=== PATIENT | male | born 1960 | race African-American/Black ===

== ENCOUNTER 2017-01-11 12:31 | Inpatient (IN) | payer OTHER ==
--- NOTE | ~2017-01-11 | EKG ---
PATIENT: CHEYENNE VINSON UNIT #: [id number] Ventricular Rate: 74 BPM Atrial Rate: 74 BPM P-R Interval: 142 ms QRS Duration: 98 ms Q-T Interval: 414 ms QTC Calculation(Bezet): 459 ms P Loud[place]: 41 degrees Calculated R [place]: 50 degrees Calculated T L[place]: 39 degrees Diagnosis Line: Normal sinus rhythm Diagnosis Line: Nonspecific ST elevation Diagnosis Line: Borderline ECG Diagnosis Line: When compared with ECG of 13-JAN-2017 06:24, Diagnosis Line: (unconfirmed) Diagnosis Line: No significant change was found Diagnosis Line: Confirmed by AYAKA QUACH MD ([id number]) on 01/14/2017 Diagnosis Line: 5:55:47 PM INTERPRETING MD: MAIN RUBY
--- NOTE | ~2017-01-11 | CR72 ---
[facility] A Service of [facility] RADIOLOGY TEXT RESULTS PATIENT: CHEYENNE VINSON LOCATION: [place] [address] : [birth year] UNIT #: [id number] AGE: [address]: Kasey Garcia MD SEX: M ORDER DR: [id number] [facility] [address]. [place], [place] [address] [id number] I MR#: [id number] Acc #: [id number] NAME: CHEYENNE VINSON : 1960 SEX: M STUDY DATE/TIME: 01/14/2017 05:03 UNIT: [facility] ROOM: [facility] STUDY DESCRIPTION: CR Chest Single View Portable Attending Physician: Kasey Garcia M.D. Ordering Physician: Kasey Garcia M.D. Primary Care Physician: Brennan Oliva Jr., A.P.R.N. MEDICAL IMAGING REPORT This report is preliminary unless electronic signature is present EXAM Portable chest, 01/14 at 05:03 INDICATION Dyspnea and wheezing. FINDINGS AP portable chest is compared with 01/13/2017. ET tube mid trachea. There is emphysema. Infiltrates in the bases are again seen and are unchanged. There is a small volume of pleural fluid on both sides of the chest. No pneumothorax. Heart size stable. Dictated by... Rich Mcadams Jr., M.D. THIS IS AN ELECTRONICALLY VERIFIED REPORT Rich Mcadams Jr., M.D. at 01/14/2017 11:01 PM MATEO/ivet TD: 01/14/2017 18:06 JOB #: [id number] MEDICAL IMAGING REPORT COPY
--- NOTE | ~2017-01-11 | CT16 ---
[facility] A Service of [facility] RADIOLOGY TEXT RESULTS PATIENT: CEHYENNE VINSON LOCATION: [place] [address] : 56 UNIT #: [id number] AGE: [address]: Nuria De La Fuente MD SEX: M ORDER DR: [id number] [facility] [address] [place], [place] [address] [id number] I MR#: [id number] Acc #: [id number] NAME: CHEYENNE VINSON. : 1960 SEX: M STUDY DATE/TIME: 01/11/2017 16:26 UNIT: [facility] ROOM: [facility] STUDY DESCRIPTION: CT Angio Chest for PE Attending Physician: Nuria De La Fuente M.D. Ordering Physician: Nuria De La Fuente M.D. Primary Care Physician: Brennan Oliva Jr., A.P.R.N. MEDICAL IMAGING REPORT This report is preliminary unless electronic signature is present EXAM Chest CTA 01/11 INDICATIONS Dyspnea and wheezing for 2 days with cough. TECHNIQUE Axial images were obtained through the chest following IV contrast administration. 3-D reformats were obtained. This CT exam was performed with one or more of the following radiation dose reduction techniques: automatic exposure control, adjustment of mA and/or kV according to patient size, and iterative reconstruction. COMPARISON STUDIES 11/25/2016. FINDINGS The exam is degraded by excessive motion. Bolus timing is suboptimal. No new discrete pulmonary emboli are seen but the third and fourth order branches are fairly poorly evaluated. There is no aortic dissection. There is a trace amount of left pleural fluid which is slightly improved. No pericardial effusion. There has been interval enlargement of an AP window lymph node which now measures 3.4 x 1.6 cm, previously 2.8 x 1.4 cm. 2 prevascular nodes are also larger, both measuring about 9 mm short axis. A right hilar node measures 1.7 x 1.4 cm. This was previously 1.4 x 1.3 cm. A left hilar node now measures about 11 mm short-axis where it was previously about 8 mm. No axillary adenopathy is identified. Lung windows demonstrate severe emphysema. There is dense right lower lobe consolidation which is relatively stable. This has the appearance of round atelectasis. There is worsened consolidation in the left lower lobe which is worrisome for pneumonia. There is some probable scarring round STS. [facility] A Service of [facility] & [facility] RADIOLOGY TEXT RESULTS PATIENT: CHEYENNE VINSON LOCATION: [address] : [birth year] UNIT #: [id number] AGE: [address]: Nuria De La Fuente MD SEX: M ORDER DR: atelectasis in the lingula. Upper abdomen demonstrates hepatic steatosis. There is a 2.4 x 2 cm hypodense right adrenal mass. Density measurements would suggest a benign adenoma. This is stable from the recent prior study, but is new since 01/25/2013. Consider non-emergent evaluation with adrenal protocol MRI. No suspicious osseous lesions. IMPRESSION 1. Suboptimal evaluation due to suboptimal bolus timing as well as excessive respiratory motion. No pulmonary embolism is seen, but third and fourth order branches are fairly poorly evaluated. 2. Slight worsening mediastinal and bilateral hilar adenopathy since 11/25/2016. This is nonspecific and may be reactive, but neoplasm not excluded. Follow-up chest CT in 3 months with contrast is recommended. 3. Severe emphysema. Areas of scarring or round atelectasis in the right lower lobe, left lower lobe and lingula are stable in the short interval. There is new alveolar infiltrate in the left lower lobe which probably reflects pneumonia. 4. There is a hypodense right adrenal nodule which is stable from the recent prior study but new from 2012. This is therefore indeterminate. Non-emergent evaluation with adrenal protocol MRI or CT is recommended when clinically feasible. 5. Fatty liver. Dictated by... Rich Mcadams Jr., M.D. THIS IS AN ELECTRONICALLY VERIFIED REPORT Rich Mcadams Jr., M.D. at 01/12/2017 8:09 AM MATEO/leona TD: 01/11/2017 21:44 JOB #: [id number] MEDICAL IMAGING REPORT COPY
--- NOTE | ~2017-01-11 | EKG ---
PATIENT: CHEYENNE VINSON UNIT #: [id number] Ventricular Rate: 63 BPM Atrial Rate: 63 BPM P-R Interval: 174 ms QRS Duration: 100 ms Q-T Interval: 440 ms QTC Calculation(Bezet): 450 ms P Mansfield: 11 degrees Calculated R Mansfield: 42 degrees Calculated T Mansfield: 39 degrees Diagnosis Line: Normal sinus rhythm Diagnosis Line: Normal ECG Diagnosis Line: When compared with ECG of 13-JAN-2017 17:52, Diagnosis Line: (unconfirmed) Diagnosis Line: Vent. rate has decreased BY 83 BPM Diagnosis Line: Non-specific change in ST segment in Inferior Diagnosis Line: leads Diagnosis Line: Confirmed by AYAKA QUACH MD ([id number]) on 01/14/2017 Diagnosis Line: 6:03:04 PM INTERPRETING MD: MAIN RUBY
--- NOTE | ~2017-01-11 | HP ---
Unit #: [id number] #: [id number] Patient: CHEYENNE VINSON [id number] [address] [place], [place] [address] [id number] MR#: [id number] NAME: CHEYENNE VINSON ROOM: Age: 56 Sex: M Admission Date: 01/11/2017 : 1960 Attending Physician: Cristela Yi M.D. Primary Care Physician: Brennan Oliva Jr., A.P.R.N. HISTORY AND PHYSICAL CHIEF COMPLAINT Dyspnea, wheezes. HISTORY OF PRESENT ILLNESS The patient is a 56-year-old male with a past medical history of COPD, diabetes, likely obstructive sleep apnea, hypothyroidism, tobacco abuse, and morbid obesity, who presented to the emergency department for evaluation of the above. The patient states that he has had a three to four day history of increasing shortness of breath and productive cough. He states that he has had chills but no documented fever. He also reports chest pressure in the mid chest in association with cough. He has had decreased appetite but denies any vomiting or diarrhea. Upon arrival in the emergency department, the patient's oxygen saturation was 40% on room air. He is currently on Oxymizer 10 liters. Chest x-ray shows severe emphysema with a small left pleural effusion. He was given 125 mg of Solu-Medrol, as well as 750 mg of Levaquin in the emergency department. He is being admitted to [facility] for evaluation and further treatment. PAST MEDICAL HISTORY 1. Admission to [facility] December 20-2016, for right lower extremity cellulitis. He was discharged home on Keflex which he has been taking as prescribed. 2. Hypothyroidism. 3. Chronic obstructive pulmonary disease with continued tobacco abuse followed by Dr. Heck. 4. Diabetes. 5. Likely obstructive sleep apnea. 6. Morbid obesity present on admission with a BMI of 42.2. PAST SURGICAL HISTORY Ventral hernia repair. SOCIAL HISTORY The patient lives with his girlfriend. He smokes a pack and a half of cigarettes daily. He no longer drinks alcohol. His code status is a Full Code. FAMILY HISTORY There is no family history of diabetes or coronary artery disease. Unit #: [id number] #: [id number] Patient: CHEYENNE VINSON ALLERGIES No known allergies. HOME MEDICATIONS 1. Albuterol 2 puffs inhaled daily. 2. Aspirin 81 mg daily. 3. Lipitor 20 mg daily. 4. Lasix 40 mg daily. 5. Gabapentin 300 mg daily. 6. Glipizide 5 mg daily. 7. Lantus 20 units in the evening. 8. Levothyroxine 137 mcg daily. 9. Glucophage 1000 mg twice daily. 10. ProAir 2 puffs inhaled q.4 hours. 11. Spiriva 1 puff inhaled daily. 12. Ventolin 2 puffs inhaled q.4 hours. 13. Symbicort 160/4.5 at 2 puffs inhaled twice daily. REVIEW OF SYSTEMS A complete review of systems is negative except as indicated in the History of Present Illness. PHYSICAL EXAMINATION VITAL SIGNS: Temperature is 98.9, pulse 78, respirations 22, blood pressure 135/85, and oxygen saturation 40% on room air, currently in the high 80s on 10 liter Oxymizer. GENERAL: Patient is a male who is awake and alert. He is somewhat restless and anxious. HEENT: Head is atraumatic. Mucous membranes are moist. NECK: Supple. Trachea is midline. CARDIOVASCULAR: Regular rate and rhythm. LUNGS: Inspiratory and expiratory wheezes with a few scattered rhonchi. Breathing is mildly labored with conversation. ABDOMEN: Obese, soft, and nontender, with bowel sounds present in all four quadrants. EXTREMITIES: With 2+ pitting edema bilaterally. The legs are erythematous and warm. PSYCHIATRIC: Patient is somewhat anxious. He is cooperative. SKIN: Somewhat diaphoretic. NEUROLOGIC: Patient is awake and alert. He follows commands. DIAGNOSTIC STUDIES LABORATORY: Complete blood count is essentially normal. Troponin is 0.06. BNP is 181. Arterial blood gas shows a pH of 7.308, PCO2 of 64.7, PO2 of 73 on 10 liter Oxymizer. Comprehensive metabolic panel notable for a sodium of 133, chloride 94, glucose 140, and AST and ALT 92 and 105, respectively. INR is 1.1. D-dimer is 1909. Repeat troponin is less than 0.05. IMAGING: Chest x-ray shows severe emphysema with a small left pleural effusion. CARDIOLOGY: EKG shows normal sinus rhythm with a rate of 76 beats per minute. ASSESSMENT The patient is a 56-year-old male with: 1. Acute respiratory failure, hypoxic and hypercapnic. Unit #: [id number] #: [id number] Patient: CHEYENNE VINSON 2. Chronic obstructive pulmonary disease exacerbation with continued tobacco abuse. 3. Chest pain. 4. History of right lower extremity cellulitis. 5. Left pleural effusion. 6. Chest pain. 7. History of right lower extremity cellulitis, currently on Keflex. 8. Diabetes. 9. Likely obstructive sleep apnea. The patient states that he has an appointment for a sleep study on Monday. 10. Hypothyroidism. 11. Morbid obesity with a body mass index of 42.2. 12. Transaminitis. PLAN 1. Admit to ICU. 2. BiPAP at 12/6 with an FIO2 of 50%. 3. Repeat ABG one hour after on BiPAP. 4. Consult Dr. Moya regarding acute respiratory failure. 5. DuoNebs q.4 hours. 6. Solu-Medrol 80 mg IV q.[address] of the chest, PE protocol, for further evaluation of acute respiratory failure and elevated D-dimer. 8. Check procalcitonin level. 9. Blood cultures x2. 10. Sputum culture and sensitivity. 11. Levaquin 750 mg IV daily pending further workup. 12. Serial cardiac enzymes. 13. Strict I/Os. 14. Daily weights. 15. Change Lasix to IV with first dose now. 16. Low-dose sliding scale insulin with Accu-Cheks. 17. Lovenox for DVT prophylaxis. 18. Protonix for GI prophylaxis since the patient will be on Solu-Medrol. 19. Repeat labs in the morning. 20. Additional workup and consultants based on above. 21. Regarding code status, the patient is a Full Code. Thirty-five (35) minutes critical care time spent in the care of this patient (1:50-2:25 p.m.). Dictated by Nuria De La Fuente M.D. AW/tera TD: 01/11/2017 15:32 JOB #: [id number] Unit #: [id number] #: [id number] Patient: CHEYENNE VINSON HISTORY AND PHYSICAL X Nuria De La Fuente MD HISTORY AND PHYSICAL
--- NOTE | ~2017-01-11 | CR72 ---
[facility] A Service of [facility] RADIOLOGY TEXT RESULTS PATIENT: CHEYENNE VINSON LOCATION: [place] [address] : [birth year] UNIT #: [id number] AGE: [address]: Kasey Garcia MD SEX: M ORDER DR: [id number] [facility] [address] [place], [place] [address] [id number] I MR#: [id number] Acc #: [id number] NAME: CHEYENNE VINSON : 1960 SEX: M STUDY DATE/TIME: 01/12/2017 11:07 UNIT: [facility] ROOM: [facility] STUDY DESCRIPTION: CR Chest Single View Portable Attending Physician: Kasey Garcia M.D. Ordering Physician: Rajiv Espinal M.D. Primary Care Physician: Brennan Oliva Jr., A.P.R.N. MEDICAL IMAGING REPORT This report is preliminary unless electronic signature is present EXAM Portable chest 01/12/2017 HISTORY Status post intubation. Short of air. Unable to eat. Duration today. COMPARISON CT examination 01/11/2017 and plain radiograph 01/11/2017. FINDINGS Endotracheal tube terminates 6.2 cm above the lauro at the upper T3 vertebral body level. The flexible feeding tube extends below the diaphragm and off the field of the radiograph. Cardiomediastinal contours are stable with mild cardiac enlargement. No change in appearance of pulmonary parenchyma. There is evidence of upper lung zone emphysema. Coarse linear markings in the kgw-md-aonlt lung zones bilaterally probably reflects some degree of chronic interstitial change. Patchy areas of airspace disease at the bilateral lung bases are nonspecific and probably involve components of atelectasis and bibasilar pneumonitis in addition to some underlying chronic parenchymal changes. No sizable pleural effusion is seen. There is no pneumothorax. No suspicious nodule. Dictated by... Jd Ma M.D. THIS IS AN ELECTRONICALLY VERIFIED REPORT Jd Ma M.D. at 01/14/2017 8:22 PM JAMAAL/vanessa TD: 01/12/2017 13:54 JOB #: [id number] [facility] A Service of [facility] RADIOLOGY TEXT RESULTS PATIENT: CHEYENNE VINSON LOCATION: [address] : [birth year] UNIT #: [id number] AGE: [address]: Kasey Garcia MD SEX: M ORDER DR: MEDICAL IMAGING REPORT COPY
--- NOTE | ~2017-01-11 | CO ---
Unit #: [id number] #: [id number] Patient: CHEYENNE VINSON [id number] [address] [place], [place] [address] [id number] I MR#: [id number] NAME: CHEYENNE VINSON ROOM: [facility] Age: 56 Sex: M Admission Date: 01/11/2017 : 1960 Attending Physician: Kasey Garcia M.D. Primary Care Physician: Brennan Oliva Jr., A.P.R.N. Consultation Date: 01/11/2017 CONSULTATION REPORT HISTORY OF PRESENT ILLNESS This is a 56-year-old gentleman with a history of obstructive sleep apnea, COPD, history of chronic tobacco use, positive obesity. He presents with 4 days of progressive chills, chest pain, shortness of breath, dyspnea on exertion. The patient was very hypoxic on room air on presentation to the emergency room and was placed on BiPAP. The patient is very confused, and therefore, is unable to give us a very clear history of what is going on. The patient has had previous admission in December, where he had cellulitis, bilateral lower extremity edema, and diabetes mellitus. The patient was sent home with antibiotics. Since then, he is not able to give us a history of worsening fevers or chills, but he has had anorexia. REVIEW OF SYSTEMS Difficult to obtain as the patient is confused. He complains of being hungry, however, he is remarkably confused and cannot stay long off the BiPAP. PAST MEDICAL HISTORY Significant for right lower extremity cellulitis, history of hypothyroidism, history of chronic obstructive pulmonary disease followed by Dr. Heck, history of diabetes, history of obstructive sleep apnea, and history of morbid obesity. PAST SURGICAL HISTORY Significant for ventral hernia repair. SOCIAL HISTORY The patient lives with girlfriend. He smokes a pack and half a day. History of alcohol, none currently. FAMILY HISTORY No family history of diabetes or coronary artery disease. ALLERGIES The patient has no known drug allergies. HOME MEDICATIONS Include albuterol 2 puffs inhaled daily, aspirin 81 mg daily, Lipitor 20 mg daily, Lasix 40 mg daily, gabapentin 300 mg daily, glipizide 5 mg daily, Lantus 20 units each evening, levothyroxine 137 mcg daily, Glucophage 1000 mg b.i.d., ProAir two puffs inhaled every 4 hours, Spiriva 1 puff inhaled daily, Ventolin 2 puffs every 4 hours, Symbicort 160/4.5 two puffs inhaled b.i.d. Unit #: [id number] #: [id number] Patient: CHEYENNE VINSON PHYSICAL EXAMINATION VITAL SIGNS: T-current 97.4, pulse 59, respiratory rate 15, blood pressure 121/78, saturating 94% on 50% BiPAP. HEENT: Pupils are equal, round, and reactive to light. Extraocular movements are intact. NECK: Shows it is large and greater than 17 inches. Shows no accessory muscle use. CHEST: Shows kind of decreased wheeze bilaterally. CARDIOVASCULAR: Regular rate. No gallop. ABDOMEN: Soft, nontender, and nondistended. EXTREMITIES: Show edema +1 to +2. Does not appear to be acute erythema. DIAGNOSTIC STUDIES LABORATORY RESULTS: Troponins 0.10. ABG; 7.32, 50, and 90 on the BiPAP. ASSESSMENT AND PLAN 1. Acute respiratory failure, chronic obstructive pulmonary disease exacerbation, left lower lobe pneumonia. 2. Rounded atelectasis bilaterally, obstructive sleep apnea, and diabetes mellitus. PLAN Plan is to keep BiPAP overnight. Continue nebs, try to keep saturation between 92 and 95. Tomorrow morning, we are going to have to try to wean him off the BiPAP and in the meantime, we will continue current antibiotics which is Levaquin. We are going to try to send sputum cultures to check for MRSA nares and will also put the patient on a little bit of steroids. Thank you very much for this consult and allowing us to participate in the care of this patient. Please page me at [phone] if you have any questions. Dictated by... Melvin Fink/kimi TD: 01/13/2017 05:46 JOB #: [id number] CONSULTATION REPORT X Lucas Espinal MD CONSULTATION REPORT
--- NOTE | ~2017-01-11 | CR72 ---
[facility] A Service of [facility] RADIOLOGY TEXT RESULTS PATIENT: CHEYENNE VINSON LOCATION: [place] [address] : 56 UNIT #: [id number] AGE: [address]: Kasey Garcia MD SEX: M ORDER DR: [id number] [facility] [address] [place], [place] [address] [id number] I MR#: [id number] Acc #: [id number] NAME: CHEYENNE VINSON : 1960 SEX: M STUDY DATE/TIME: 01/13/2017 5:11 UNIT: [facility] ROOM: [facility] STUDY DESCRIPTION: CR Chest Single View Portable Attending Physician: Kasey Garcia M.D. Ordering Physician: Rajiv Espinal M.D. Primary Care Physician: Brennan Oliva Jr., A.P.R.N. MEDICAL IMAGING REPORT This report is preliminary unless electronic signature is present EXAM Portable chest HISTORY Ventilated dependence, dyspnea, and wheezing. TECHNIQUE A single AP view of the chest was obtained and compared with 01/12/2017. FINDINGS Tubes and supporting devices remain in satisfactory position. The heart and mediastinum are stable. Extensive infiltrates are seen with emphysematous changes. Since the previous examination no new infiltrates are noted. The right costophrenic angle shows improved aeration since the previous exam. IMPRESSION Slight improvement at the right lung base since the previous exam. No new infiltrates are seen. Dictated by... Rich Johnson M.D. THIS IS AN ELECTRONICALLY VERIFIED REPORT Rich Johnson M.D. at 01/13/2017 3:26 PM HELEN/yahaira TD: 01/13/2017 10:04 JOB #: [id number] MEDICAL IMAGING REPORT COPY
--- NOTE | ~2017-01-11 | EKG ---
PATIENT: CHEYENNE VINSON UNIT #: [id number] Ventricular Rate: 65 BPM Atrial Rate: 65 BPM P-R Interval: 156 ms QRS Duration: 94 ms Q-T Interval: 438 ms QTC Calculation(Bezet): 455 ms P Niland: -11 degrees Calculated R Niland: 48 degrees Calculated T Niland: 38 degrees Diagnosis Line: Normal sinus rhythm Diagnosis Line: Normal ECG Diagnosis Line: When compared with ECG of 11-JAN-2017 11:55, Diagnosis Line: No significant change was found Diagnosis Line: Confirmed by AYAKA QUACH MD ([id number]) on 01/14/2017 Diagnosis Line: 5:53:40 PM INTERPRETING MD: MAIN RUBY
--- NOTE | ~2017-01-11 | CR72 ---
[facility] A Service of [facility] & [facility] RADIOLOGY TEXT RESULTS PATIENT: CHEYENNE VINSON LOCATION: [facility] - : 56 UNIT #: [id number] AGE: [address]: Kasey Garcia MD SEX: M ORDER DR: [id number] [facility] [address] [place], [place] [address] [id number] I MR#: [id number] Acc #: [id number] NAME: CHEYENNE VINSON : 1960 SEX: M STUDY DATE/TIME: UNIT: [address] ROOM: [facility] STUDY DESCRIPTION: CR Chest Single View Portable Attending Physician: Kasey Garcia M.D. Ordering Physician: Rajiv Espinal M.D. Primary Care Physician: Brennan Oliva Jr., A.P.R.N. MEDICAL IMAGING REPORT This report is preliminary unless electronic signature is present EXAM Portable chest 01/18/2017 at 0250 INDICATION Shortness of air, cough, chills and congestion for 7 days. Respiratory failure. COPD. FINDINGS AP portable chest compared with 01/15/2017. Heart size stable. There is severe emphysema. Continued infiltrate or atelectasis noted in the bases, left greater than right. There is a small volume of pleural fluid on both sides of the chest. No pneumothorax. IMPRESSION Severe emphysema with persistent bibasilar infiltrates, left greater than right. There are also small effusions. Dictated by... Rich Mcadams Jr., M.D. THIS IS AN ELECTRONICALLY VERIFIED REPORT Rich Mcadams Jr., M.D. at 01/18/2017 9:17 PM MATEO/yahaira TD: 01/18/2017 10:27 JOB #: [id number] MEDICAL IMAGING REPORT COPY
--- NOTE | ~2017-01-11 | EKG ---
PATIENT: CHEYENNE VINSON UNIT #: [id number] Ventricular Rate: 76 BPM Atrial Rate: 76 BPM P-R Interval: 138 ms QRS Duration: 88 ms Q-T Interval: 380 ms QTC Calculation(Bezet): 427 ms Calculated R Harrison: 84 degrees Calculated T Harrison: 46 degrees Diagnosis Line: Normal sinus rhythm Diagnosis Line: Normal ECG Diagnosis Line: When compared with ECG of 19-DEC-2016 21:54, Diagnosis Line: No significant change was found Diagnosis Line: Confirmed by ALEXANDRE RAHMAN MD ([id number]) on 01/12/2017 Diagnosis Line: 6:19:32 PM INTERPRETING MD: JOSIAH RUBY
--- NOTE | ~2017-01-11 | DS ---
Unit #: [id number] #: [id number] Patient: CHEYENNE VINSON [id number] [address] [place], [place] [address] [id number] MR#: [id number] NAME: CHEYENNE VINSON. ROOM: [facility] Age: 56 Sex: M Admission Date: 01/11/2017 : 1960 Discharge Date: 01/20/2017 Attending Physician: Kasey Garcia M.D. Primary Care Physician: Brennan Oliva Jr., A.P.R.N. DISCHARGE SUMMARY DIAGNOSES ON ADMISSION 1. Acute respiratory failure. 2. Chronic obstructive pulmonary disease exacerbation. DIAGNOSES ON DISCHARGE 1. Acute respiratory failure requiring intubation, improved. The patient requires home oxygen. 2. Cor pulmonale. 3. Chronic obstructive pulmonary disease. 4. Paroxysmal atrial fibrillation. 5. History of myocardial infarction. 6. Obstructive sleep apnea syndrome. 7. Insulin-dependent diabetes mellitus. 8. Hypothyroidism. CONSULTATIONS 1. Dr. Cedillo in cardiology consultation. 2. Dr. Espinal in pulmonary consultation. DIAGNOSTIC STUDIES LABS: The patient's creatinine is 1.1, sodium 136, potassium 4.5. INR is 2.1. WBC is 11.4, hemoglobin 15.9, platelet count is 289. HOSPITAL COURSE This 56-year-old male was admitted to the hospital with respiratory distress. Details are as per admission H and P. Acute respiratory failure. The patient was admitted in the ICU and was intubated. He was gradually extubated. The patient has responded well. Acute exacerbation of COPD. The patient was treated with IV Solu-Medrol and responded well. Acute bronchitis. The patient was treated with antibiotics. Atrial fibrillation. The patient has converted to sinus rhythm. The patient is started on Coumadin and is advised to follow up with cardiology. PHYSICAL EXAMINATION GENERAL: Today, the patient is comfortable, anxious to go home. VITAL SIGNS: Vital signs reveal temperature of 98.6, pulse 62 per minute, respiratory rate 18 per minute and blood pressure 127/85. HEENT: Examination revealed no conjunctival congestion. Sclera is nonicteric. Unit #: [id number] #: [id number] Patient: CHEYENNE VINSON NECK: Neck is supple. Trachea is central. RESPIRATORY: Examination revealed breath sounds equal bilaterally. There are no wheezes or crackles. HEART: Regular rate and rhythm. S1, S2. ABDOMEN: Abdomen is soft, nontender. Bowel sounds are present in all 4 quadrants. NEUROLOGIC: The patient is alert to person, place and time. Power is 5/5 bilaterally. Sensations are grossly intact. SKIN: Skin is warm and dry. CONDITION Stable. ACTIVITIES As tolerated. DISCHARGE MEDICATIONS 1. Albuterol Mini-Neb treatment q.4 hours awake. 2. Albuterol MDI 2 puffs q.4 hours p.r.n. 3. Symbicort 160/4.5 mcg 2 puffs b.i.d. 4. Prednisone as per Dr. Espinal, which his 10 mg 4 tablets p.o. daily for 4 days, then 3 tablets p.o. daily for 3 days, then 2 tablets p.o. daily for 2 days, then 1 tablet p.o. daily for 1 day. 5. Spiriva 1 inhalation daily. 6. Coumadin 5 mg p.o. daily. 7. Neurontin 300 mg p.o. daily. 8. Glucophage 1,000 mg p.o. b.i.d. 9. Lasix 40 mg p.o. daily. 10. Lipitor 20 mg p.o. q.h.s. 11. Lantus 20 units subcu q.h.s. 12. Enteric-coated aspirin 81 mg p.o. daily. 13. Glipizide 5 mg p.o. daily. 14. Synthroid 137 mcg p.o. daily. FOLLOW-UP 1. The patient is advised to follow up with primary care physician in 1 week. 2. Advised to follow up with pulmonology and cardiology as recommended. 3. It is advised to have an INR done with Dr. Cedillo's office in the next 4-5 days. NOTE: The patient is advised to call primary care physician or go to ER if his condition changes. Dictated by... Melvin Winslow TD: 01/20/2017 12:04 JOB #: [id number] Unit #: [id number] #: [id number] Patient: CHEYENNE VINSON DISCHARGE SUMMARY X Kasey Garcia MD DISCHARGE SUMMARY
--- NOTE | ~2017-01-11 | A ---
[facility] Nutrition Therapy DATE: 01/12/17 Patient: CHEYENNE VINSON Physician: KEVIN Address: [address] [place] [address] Room/Bed: [address], Zip: [place] [address] Admit Date: 01/11/17 Date of : 56 Height: 6 1 Weight: 303 137.5 NUTRITIONAL ASSESSMENT: REASON: CONSULT FOR ENTERAL NUTRITION, No diet order in ICU 56 yo male admitted for dyspnea PMH: COPD, DM, RADAMES, hypothyroidism, morbid obesity, hernia repair Anthropometrics: Ht: 6'1" Wt: 137.5 kg BMI: 40 IBW: 83.6 kg Labs: Na+ 133 K+ 5.2 Cl- 92 Gluc 208 Ca++ 7.8 Alb 3.2 AST 68 ALT 93 Accuchecks 191 Meds: Solu-medrol, levaquin (IV), D5%, versed, synthroid (now ordered PO, will be via DHT per RN), levemir, lipitor, novolog, furosemide, protonix I/O & Bowel function: , last BM unknown, DHT in place Skin Integrity: red/swollen BLE Edema: BLE 2+ Estimated Nutrition Needs: 8926-9533 kcals (11-14 kcals/kg ABW) 125-167 grams protein (1.5-2.0 grams/kg IBW) Assessment: Chart reviewed, events noted. Pt is intubated and sedated in the ICU. Pt's propofol is turned off at this time, may be changing sedation medication per RN report. RD consulted to provide enteral nutrition recommendations. No family in the pt's room at this time to provide nutritional history. Per MD note, the pt had decreased appetite prior to admission. Dx: Inadequate protein-energy intake RT clinical condition AEB enteral nutrition ordered, no diet order. Intervention: 1. Enteral nutrition Monitoring, Evaluation and Goals: 1. Enteral nutrition; provide >80% goal volume x 24hrs 2. Labs; WNL 3. Weight; preserve lean body mass 4. Skin; prevent breakdown [facility] Nutrition Therapy DATE: 01/12/17 Patient: CHEYENNE VINSON Physician: KEVIN Address: [address] [place] [address] Room/Bed: [address], Zip: [place] [address] Admit Date: 01/11/17 Date of : 56 Height: 6 1 Weight: 303 137.5 Recommendations: 1. Once medically feasible, initiate enteral nutrition with Glucerna 1.5 @ 20 mL/hr x 22 hrs. Increase by 10 mL q 8 hrs as tolerated to goal of 55 mL/hr x 22 hrs to provide: 2015 kcals/ 130 grams protein/ 918 mL free H20 PLEASE NOTE: ENTERAL NUTRITION SHOULD BE HELD FOR ONE HOUR BEFORE AND ONE HOUR AFTER ADMINISTRATION OF SYNTHROID VIA DHT 2. Free H20 per MD orders. 3. Will monitor K+ levels and adjust enteral nutrition as needed. Nepro is not indicated at this time based on the pt's other renal labs, PMH. Pt is at moderate-severe nutritional risk. Respectfully, JAMES ARMENDARIZ RD, LD Food and Nutritional Services [facility] cc: client file
--- NOTE | ~2017-01-11 | CR72 ---
[facility] A Service of [facility] & [facility] RADIOLOGY TEXT RESULTS PATIENT: CHEYENNE VINSON LOCATION: [place] [id number] : [birth year] UNIT #: [id number] AGE: [address]: Kasey Garcia MD SEX: M ORDER DR: [id number] [facility] [address] [facility]. [place], [place] [address] [id number] I MR#: [id number] Acc #: [id number] NAME: CHEYENNE VINSON : 1960 SEX: M STUDY DATE/TIME: 01/15/2017 03:58 UNIT: [facility] ROOM: [facility] STUDY DESCRIPTION: CR Chest Single View Portable Attending Physician: Kasey Garcia M.D. Ordering Physician: Negro Cox M.D. Primary Care Physician: Brennan Oliva Jr., A.P.R.N. MEDICAL IMAGING REPORT This report is preliminary unless electronic signature is present EXAM Portable chest, 01/15 at 03:58 INDICATION Respiratory failure, confusion, chills and shortness of air for 4 days. FINDINGS AP portable chest is compared with 01/14/2017. The patient has been extubated. The feeding tube has been removed. Heart size is stable. There is emphysema with persistent infiltrate or atelectasis in both bases. No pneumothorax. Dictated by... Rich Mcadams Jr., M.D. THIS IS AN ELECTRONICALLY VERIFIED REPORT Rich Mcadams Jr., M.D. at 01/15/2017 9:33 PM MATEO/ivet TD: 01/15/2017 17:00 JOB #: [id number] MEDICAL IMAGING REPORT COPY
--- NOTE | ~2017-01-11 | CR7 ---
[facility] A Service of [facility] & [facility] RADIOLOGY TEXT RESULTS PATIENT: CHEYENNE VINSON LOCATION: [place] [id number] : 56 UNIT #: [id number] AGE: [address]: Kasey Garcia MD SEX: M ORDER DR: [id number] [facility] [address] [facility]. [place], [place] [address] [id number] I MR#: [id number] Acc #: [id number] NAME: CHEYENNE VINSON : 1960 SEX: M STUDY DATE/TIME: 01/12/2017 11:10 UNIT: [facility] ROOM: [facility] STUDY DESCRIPTION: CR Abdomen Single AP View Attending Physician: Kasey Garcia M.D. Ordering Physician: Rajiv Espinal M.D. Primary Care Physician: Brennan Oliva Jr., A.P.R.N. MEDICAL IMAGING REPORT This report is preliminary unless electronic signature is present EXAM Supine radiograph of the abdomen 01/12/2017 HISTORY Dobbhoff tube placement. FINDINGS Supine radiograph of the abdomen shows flexible feeding tube extending below diaphragm and terminating in anticipated location of distal stomach. Visualized bowel gas pattern within normal limits. No gross evidence of free air. See today's chest radiograph for discussion of pulmonary parenchymal findings. Dictated by... Jd Ma M.D. THIS IS AN ELECTRONICALLY VERIFIED REPORT Jd Ma M.D. at 01/14/2017 8:22 PM JAMAAL/vanessa TD: 01/12/2017 13:58 JOB #: [id number] MEDICAL IMAGING REPORT COPY
--- NOTE | ~2017-01-11 | CR72 ---
[facility] A Service of [facility] & [facility] RADIOLOGY TEXT RESULTS PATIENT: CHEYENNE VINSON LOCATION: [facility] : 56 UNIT #: [id number] AGE: [address]: Cristela Yi MD SEX: M ORDER DR: [id number] [facility] [address] [place], [place] [address] [id number] MR#: [id number] Acc #: [id number] NAME: CHEYENNE VINSON : 1960 SEX: M STUDY DATE/TIME: 01/11/2017 12:08 UNIT: [facility] ROOM: STUDY DESCRIPTION: CR Chest Single View Portable Attending Physician: Cristela Yi M.D. Ordering Physician: Cristela Yi M.D. Primary Care Physician: Brennan Oliva Jr., A.P.R.N. MEDICAL IMAGING REPORT This report is preliminary unless electronic signature is present EXAM Portable chest, 01/11 INDICATION Shortness of air today. History of COPD. FINDINGS AP portable views of the chest are compared with 12/19/2016. Cardiac and mediastinal contours are stable. There is severe emphysema with chronic bibasilar fibrosis. There is a chronic small left pleural effusion. No definite acute infiltrates. No pneumothorax. IMPRESSION Severe emphysema with bibasilar scarring. There is chronic small left pleural effusion. Overall, the exam is unchanged from prior. Dictated by... Rich Mcadams Jr., M.D. THIS IS AN ELECTRONICALLY VERIFIED REPORT Rich Mcadams Jr., M.D. at 01/11/2017 2:59 PM MATEO/ivet TD: 01/11/2017 14:45 JOB #: [id number] MEDICAL IMAGING REPORT COPY
--- NOTE | ~2017-01-11 | FU ---
[facility] Nutrition Therapy DATE: 01/16/17 Patient: CHEYENNE VINSON Physician: KEVIN Address: [address] [place] [address] Room/Bed: [address], Zip: [place] [address] Admit Date: 01/11/17 Date of : 56 Height: 6 1 Weight: 300 136.5 NUTRITION MONITORING/FOLLOW-UP: Reason: Nutrition follow up Anthropometrics: Ht: 6'1" Adm wt: 137.5 kg BMI: 40 IBW: 83.6 kg Wt 01/16: 136.5 kg Labs: Cl- 94 Gluc 182 BUN 28 Ca++ 8.3 Accuchecks 205 Meds: Solu-medrol, novolog, levemir, levaquin (IV), synthroid (PO), lipitor, furosemide, protonix I&O's: 194, last BM 01/15- loose stools Skin: Cellulitis RLE Edema: None noted Diet: Heart healthy/ consistent carbohydrate Assessment: Chart reviewed, events noted. Pt remains in ICU, self-extubated over the weekend. Pt passed REGULATOR PIN INSERTER evaluation, and has been ordered HH/CC diet. Pt is on a face tent for respiratory distress, and takes it off for meals per RN report. RN also reports that the pt is confused, and consuming ~25% of meals thus far. RD will order Glucerna shakes for supplemental nutrition. Pt is not appropriate for diet education at this time. Dx: Inadequate oral intake RT respiratory distress AEB ~25% intake of meals per RN report. Intervention: 1. Heart healthy/ consistent carbohydrate diet 2. Glucerna TID Monitoring, Evaluation and Goals: GOALS NOT BEING MET 1. Oral intake; tolerate >50-75% meals and supplements 2. Labs; WNL 3. Weight; prevent unintentional weight loss, promote gradual weight loss once medically feasible 4. Skin; prevent breakdown Recommendations: 1. Continue heart healthy/ consistent carbohydrate diet as tolerated. [facility] Nutrition Therapy DATE: 01/16/17 Patient: CHEYENNE VINSON Physician: KEVIN Address: [address] [place] [address] Room/Bed: [address], Zip: [place] [address] Admit Date: 01/11/17 Date of : 56 Height: 6 1 Weight: 300 136.5 2. Glucerna TID with meals for supplemental nutrition. 3. Appreciate staff encouraging adequate nutrient/ supplement intake as needed. Status: Pt is at mild-moderate nutritional risk. RD will continue to follow. Respectfully, JAMES ARMENDARIZ RD, LD Food and Nutritional Services [facility] cc: client file
--- NOTE | ~2017-01-11 | CO ---
Unit #: [id number] #: [id number] Patient: CHEYENNE VINSON [id number] [address] [place], [place] [address] [id number] I MR#: [id number] NAME: CHEYENNE VINSON ROOM[facility] Age: 56 Sex: M Admission Date: 01/11/2017 : 1960 Attending Physician: Kasey Garcia M.D. Primary Care Physician: Brennan Oliva Jr., A.P.R.N. Consultation Date: 01/13/2017 CONSULTATION REPORT REASON FOR CONSULTATION Atrial arrhythmia. HISTORY OF PRESENT ILLNESS This is a 56-year-old male with a past medical history of sinus bradycardia due to severe hypothyroidism in 2012. Prior to that, the patient was diagnosed with Graves disease. 2D echocardiogram was completed in 01/25/2013 which was a technically difficult study that revealed a left ventricular ejection fraction of 50% to 55% with mild mitral regurgitation. Walking Lexiscan Cardiolite stress test was completed on 01/28/2013, which revealed no ischemia and ejection fraction of 60%. The patient is known to have COPD, diabetes, and active tobacco abuse. He was recently admitted to [facility] on 12/20/2016 for right leg cellulitis. He was discharged and then readmitted on 01/11/2017 with complaints of shortness of breath and wheezing. He is currently on a ventilator and is only able to respond with nods. There are no family at the bedside. The patient denies any fever, but does have some chills on exam. There are no reports of chest pain, palpitations, or syncope. He admits to some occasional dizziness. It is unclear if his answers are reliable as he is on some light sedation and ventilator. He was intubated due to respiratory failure and started on a propofol drip. Due to bradycardia, the propofol was stopped. Potassium was mildly elevated on 01/12/2017. He was given Kayexalate. Telemetry revealed an atrial arrhythmia which on first glance appeared to be atrial fibrillation with RVR. Telemetry now reveals sinus rhythm. PAST MEDICAL HISTORY 1. Recent admission at [facility] at 12/20/2016 for right leg cellulitis. 2. History of sinus bradycardia due to severe hypothyroidism in 2012. 3. 2D echocardiogram on 01/25/2013 revealed a technically difficult study. Left ventricular ejection fraction 50% to 55%. Mild left ventricular hypertrophy. Mild mitral regurgitation. 4. Walking Lexiscan on 01/28/2013 revealed no ischemia. Left ventricular ejection fraction 60%. 5. Diabetes mellitus type 2. 6. COPD. 7. Colon polyps. 8. Active tobacco abuse. 9. Obesity. 10. History of Graves disease. Unit #: [id number] #: [id number] Patient: CHEYENNE VINSON PAST SURGICAL HISTORY Unobtainable per patient. HOME MEDICATIONS Glipizide 5 mg p.o. daily, Lantus 20 units subcu every evening, levothyroxine 137 mcg p.o. daily, Glucophage 1000 mg p.o. b.i.d., ProAir 2 puffs inhalation q.4 hours, Spiriva 1 puff inhalation daily, Ventolin 2 puffs every 4 hours, Symbicort 2 puffs inhalation b.i.d. ALLERGIES No known drug allergies. SOCIAL HISTORY Difficult to obtain per the patient. According to documentation, the patient is an active smoker. No reports of illicit drug use. FAMILY HISTORY Unobtainable. REVIEW OF SYSTEMS The patient's full 12-point review of systems is unobtainable. PHYSICAL EXAMINATION VITAL SIGNS: Temperature 98.1, pulse 80, blood pressure 121/62. CONSTITUTIONAL: This is a 56-year-old obese male in no acute distress. He is on a ventilator. SKIN: Warm and dry. NECK: Supple. No jugular vein distention. No hepatojugular reflux. Normal carotid upstrokes. No carotid bruits auscultated. HEART: S1 and S2. Regular rate and rhythm. No murmurs, rubs, or gallops. LUNGS: Bilateral breath sounds have scattered wheezes. Respirations even nonlabored. No rales or rhonchi. ABDOMEN: Soft, nontender, and nondistended. Positive bowel sounds auscultated x4 quadrants. No ascites noted. EXTREMITIES: Bilateral lower extremities have trace pretibial pitting edema. DP and PT pulses 2+. Capillary refill less than 2 seconds. DIAGNOSTIC STUDIES LABORATORY RESULTS: White blood cell count 9.7, hemoglobin 13.4, hematocrit 41.5, platelets 260. Sodium 136, potassium 4.3, chloride 94, CO2 36, BUN 27, creatinine 1.1, glucose 266. Troponin 0.10 and 0.06. BNP 181. TSH 1.95. T4 0.62. D-dimer 1909. IMAGING STUDIES: CTA of the chest reveals suboptimal timing, but no PE. COPD. Fatty liver. New infiltrate in the left lower lobe with questionable pneumonia. Right adrenal nodule. CARDIOVASCULAR STUDIES: EKG reveals sinus rhythm with a ventricular rate of 65 beats per minute. Early repolarization noted. Nonspecific ST-T wave changes. QTc 455 milliseconds. IMPRESSION 1. Acute respiratory failure on vent. 2. Acute exacerbation of chronic obstructive pulmonary disease. 3. Possible left lower lobe pneumonia. 4. Recent right leg cellulitis. Unit #: [id number] #: [id number] Patient: CHEYENNE VINSON 5. Atrial arrhythmia, rule out atrial fibrillation versus multifocal atrial tachycardia, now sinus rhythm. 6. Recurrent sinus bradycardia. 7. Obesity. 8. Hypothyroidism. 9. Left ventricular ejection fraction of 50% to 55% in 2012. 10. Diabetes mellitus type 2. 11. Normal walking Lexiscan 01/2013. PLAN 1. The patient presented to the hospital with complaints of shortness of breath. He was subsequently intubated and admitted to the intensive care unit. 2. Cardiology was consulted for atrial arrhythmia. Upon review of strips, there was some question of atrial fibrillation versus atrial tachycardia. 3. The patient will be started on low-dose amiodarone to help maintain sinus rhythm and to avoid bradycardia. No beta-edmar will be prescribed due to recent bradycardia on Diprivan. 4. There is no evidence of congestive heart failure on exam. The patient denies any chest pain, but may not be a reliable historian. 5. He would benefit from weight loss and obstructive sleep apnea testing. 6. CHADS2-Vasc score is 1 due to diabetes. We will start Lovenox for now. 7. 2D echocardiogram will be obtained to assess LV function and valves. 8. TSH level is normal. 9. D-dimer was elevated, but CTA of the chest revealed no pulmonary embolus, but suboptimal timing. Dictated by... Conchita Spencer APRN for Melvin Damico TD: 01/16/2017 01:53 JOB #: [id number] CONSULTATION REPORT X X CONSULTATION REPORT
--- NOTE | ~2017-01-11 | EKG ---
PATIENT: CHEYENNE VINSON UNIT #: [id number] Ventricular Rate: 146 BPM Atrial Rate: 147 BPM P-R Interval: 104 ms QRS Duration: 88 ms Q-T Interval: 320 ms QTC Calculation(Bezet): 498 ms Calculated R [place]: 54 degrees Calculated T [place]: -9 degrees Diagnosis Line: possible atrial flutter Diagnosis Line: Abnormal QRS-T angle, consider primary T wave Diagnosis Line: abnormality Diagnosis Line: Abnormal ECG Diagnosis Line: When compared with ECG of 13-JAN-2017 07:50, Diagnosis Line: (unconfirmed) Diagnosis Line: Vent. rate has increased BY 72 BPM Diagnosis Line: Non-specific change in ST segment in Inferior Diagnosis Line: leads Diagnosis Line: Confirmed by OLI PLASCENCIA MD ([id number]) on Diagnosis Line: 01/17/2017 3:56:49 PM INTERPRETING MD: TEMO RUBY
--- NOTE | ~2017-01-11 | FU ---
[facility] Nutrition Therapy DATE: 01/19/17 Patient: CHEYENNE Alvarado KAREL Physician: KEVIN Address: [facility] Room/Bed: [address] [place] [address], Zip: [place] [address] Admit Date: 01/11/17 Date of : 56 Height: 6 1 Weight: 282 128 NUTRITION MONITORING/FOLLOW-UP: Reason: PT SEEN FOR FOLLOW-UP, ALSO CONSULT RE: CC DIET EDUCATION DX: [id number] Anthropometrics: 6'1", WT: 317# (144 KG), BMI: 41.8 -ADMIT WEIGHT: 301# (137 KG) Labs: GLU: 272, BUN: 33 Meds: NOVOLOG, IV LEVAQUIN, SYNTHROID (PO), LIPITOR, FUROSEMIDE, PREDNISONE, COUMADIN I&O's: 2069/1600, 1 BM NOTED Skin: ISSUES NOTED Estimated Nutrition Needs: N/A Assessment: CHART REVIEWED AND EVENTS NOTED. PT SEEN FOR FOLLOW-UP + DIET EDUCATION. PT REPORTS TOLERATING PO INTAKE, C/O N/V/D. PT HAD LUNCH TRAY AT BEDSIDE-NOTED PT ATE 100%. THIS RD PROVIDED WRITTEN AND VERBAL CC DIET EDUCATION. RD PROVIDED LIST OF FOODS TO AVOID/LIMIT AND FOODS TO EAT MORE OFTEN. RD EMPHASIZED IMPORTANCE OF CONSUMING CONSISTENT MEAL SCHEDULE W/BALANCED MEALS. PT NOTES THAT HE COOKS AT HOME. PT REPORTS EATING POTATOES, RICE AND PASTA DAILY. RD FURTHER EXPLAINED IMPORTANCE OF PORTION CONTROL. PT DEMONSTRATED UNDERSTANDING OF THE TOPIC. PT REPORTED NO DIET QUESTIONS AT THIS TIME. RD TO REMAIN AVAILABLE. INADEQUATE ORAL INTAKE R/T RESPIRATORY DISTRESS AEB ~25% OF MEALS PER RN-RESOLVED ALTERED NUTRIENT NEEDS R/T PMH AEB ELEVATED BLOOD SUGAR LEVELS NOTED, NEED FOR THERAPEUTIC DIET ORDER. Intervention: 1. CC+HH DIET 2. GLUCERNA SHAKES BID 3. RD PROVIDED DIET EDUCATION Monitoring, Evaluation and Goals: GOALS MET 1. PO INTAKE; CONSUME >50% OF MEALS 2. LABS; WNL MONITOR: -PO INTAKE/APPETITE -EDUCATION NEEDS [facility] Nutrition Therapy DATE: 01/19/17 Patient: CHEYENNE Christiano VINSON Physician: KEVIN Address: [facility] Room/Bed: [facility] [place] [address], Zip: [place] [address] Admit Date: 01/11/17 Date of : 56 Height: 6 1 Weight: 282 128 Recommendations: 1. ENCOURAGE COMPLIANCE OF CURRENT DIET ORDER RD WILL F/U PER PROTOCOL PT IS MILDLY COMPROMISED Respectfully, TELLY NADIU MS, RD, LD Food and Nutritional Services [facility] cc: client file
[2017-01-11 12:30] LABS: BASOPHIL% 0.4 % (0-2.5); EOSINOPHIL% 0.1 % (0.0-7.0); HEMOGLOBIN 14.2 gm/dL (13.0-16.0); LYMPHOCYTE# 0.9 X10e3 (1.0-3.5); MEAN CELL VOLUME 91.1 FL (83-96); MEAN CORPUSCULAR HGB CONC 32.9 g/dL (30-36); MONOCYTE# 0.7 X10e3 (0-1.0); MONOCYTE% 8.7 % (3.0-12.0); NEUTROPHIL# 6.8 X10e3 (1.5-7.1); NEUTROPHIL% 79.8 % (40-75); PLATELET COUNT 278 X10e3 (140-420); RED BLOOD COUNT 4.72 X10e (3.90-5.60); RED CELL DISTRIBUTION WIDTH 15.4 % (11.0-15.5); WHITE BLOOD COUNT 8.5 X10e3 (4.0-10.5)
[~2017-01-11 12:31] MED LIST: ALBUTEROL MININEB INH; ALBUTEROL17 GM INH; ASPIRIN81 MG PO; BACTROBAN15 GM TOP; DOCUSATE SODIU100 MG PO; GABAPENTIN300 M2 PO; GLUCOTROL PO; INDOMETHACIN25 MG PO; KEFLEX500 MG PO; LANTUS SOLOSTAR3 ML; LANTUS100 U/ML SUBQ; LASIX PO; LEVAQUIN750 MG PO; LEVOTHYROXINE137 MCG PO; LEVOXYL112 MC1 PO; LIPITOR20 MG PO; LORTAB 10-5001 EACH PO; METFORMIN PO; MULTIVITAMIN1 UDCAP PO; NICOTINE TRANSD21 MG EXT; OSTEO BI-FLEX1 EACH PO; SPIRIVA18 MCG INH; SYMBICORT INH; TRAMADOL HCL50 M1 PO; TYLOX1 CAP 5/50 PO; VITAMIN D250000 UNIT PO; [UNRECOGNIZED DRUG - REMARK] INH
[2017-01-11 12:32] LABS: DIFF IND NO
[2017-01-11] MEDS ORDERED: SPIRIVA18 MCG INH (12:32)
[2017-01-11] MEDS ORDERED: PROAIR HFA8.5 GM INH (12:32)
[2017-01-11] MEDS ORDERED: METFORMIN PO (12:32)
[2017-01-11] MEDS ORDERED: VENTOLIN5 MG/ML INH (12:33)
[2017-01-11 12:34] LABS: POC - TROPONIN 0.06 ng/mL (<=0.05)
[2017-01-11 12:36] LABS: INR 1.1; PROTHROMBIN TIME (PATIENT) 11.3 SECONDS (9.6-11.5)
[2017-01-11 13:01] LABS: ARTERIAL BLD GAS O2 SATURATION 89.5 % (90.0-100.0); ARTERIAL BLOOD GAS ALLEN TEST Y; ARTERIAL BLOOD GAS ART SITE LEFT RADIAL; ARTERIAL BLOOD GAS CARBOXY HB 2.6 %sat (0.0-9.0); ARTERIAL BLOOD GAS DELIVERY OXY; ARTERIAL BLOOD GAS HCO3 32.4 mmol/L; ARTERIAL BLOOD GAS MET HB 0.7 %sat (0.0-2.0); ARTERIAL BLOOD GAS PCO2 64.7 mmHg (35.0-45.0); ARTERIAL BLOOD GAS pH 7.308 (7.350-7.450); ARTERIAL DRAW? YES
[2017-01-11 13:05] LABS: ALBUMIN SERUM 3.8 g/dL (3.5-5.0); ALKALINE PHOSPHATASE 70 U/L (32-92); ALT (SGPT) 105 U/L (10-40); AST (SGOT) 92 U/L (10-42); BILIRUBIN, DIRECT 0.2 mg/dL (0.0-0.2); BILIRUBIN,INDIRECT 0.5 mg/dL (0.0-0.9); BILIRUBIN,TOTAL 0.7 mg/dL (0.2-2.0); BLOOD UREA NITROGEN 18 mg/dL (9-23); BUN/CREATININE RATIO 13.84; CALCIUM SERUM 8.4 mg/dL (8.4-10.2); CARBON DIOXIDE 31 mmol/L (22-31); CHLORIDE 94 mmol/L (100-111); CREATININE SERUM 1.3 mg/dL (0.6-1.4); GLOM FILT RATE Estimated ABOVE60 mL/min (>60); GLUCOSE FASTING 140 mg/dL (70-110); POTASSIUM 4.9 mmol/L (3.5-5.1); SODIUM 133 mmol/L (135-145)
[2017-01-11] MEDS ORDERED: SYMBICORT INH (13:06)
[2017-01-11 13:40] LABS: POC - CKMB <1.0 ng/mL (0.0-7.9); POC - TROPONIN <0.05 ng/mL (<=0.05)
[2017-01-11 15:11] LABS: ARTERIAL BLD GAS O2 SATURATION 94.2 % (90.0-100.0); ARTERIAL BLOOD GAS CARBOXY HB 2.1 %sat (0.0-9.0); ARTERIAL BLOOD GAS HCO3 30.4 mmol/L; ARTERIAL BLOOD GAS MET HB 0.6 %sat (0.0-2.0); ARTERIAL BLOOD GAS PO2 90.4 mmHg (80.0-100); ARTERIAL BLOOD GAS pH 7.326 (7.350-7.450)
[2017-01-11 15:12] LABS: ARTERIAL BLOOD GAS ALLEN TEST Y; ARTERIAL BLOOD GAS ART SITE LEFT RADIAL; ARTERIAL BLOOD GAS DELIVERY BIPAP; ARTERIAL BLOOD GAS PCO2 58.2 mmHg (35.0-45.0); ARTERIAL DRAW? YES
[2017-01-11 20:34] LABS: MB 3.4 ng/ml
[2017-01-12 02:01] LABS: BASOPHIL% 0.5 % (0-2.5); DIFF IND NO; HEMATOCRIT 42.4 % (38.0-50.0); HEMOGLOBIN 13.5 gm/dL (13.0-16.0); LYMPHOCYTE# 0.6 X10e3 (1.0-3.5); LYMPHOCYTE% 8.8 % (17.0-45.0); MEAN CELL VOLUME 91.9 FL (83-96); MEAN CORPUSCULAR HEMOGLOBIN 29.2 PG (28-34); MEAN CORPUSCULAR HGB CONC 31.8 g/dL (30-36); MEAN PLATELET VOLUME 6.9 FL (6.5-11.5); MONOCYTE# 0.5 X10e3 (0-1.0); MONOCYTE% 6.9 % (3.0-12.0); NEUTROPHIL# 5.9 X10e3 (1.5-7.1); NEUTROPHIL% 83.8 % (40-75); PLATELET COUNT 251 X10e3 (140-420); RED BLOOD COUNT 4.61 X10e (3.90-5.60); RED CELL DISTRIBUTION WIDTH 15.4 % (11.0-15.5); WHITE BLOOD COUNT 7.1 X10e3 (4.0-10.5)
[2017-01-12 02:14] LABS: INR 1.1; PROTHROMBIN TIME (PATIENT) 11.4 SECONDS (9.6-11.5)
[2017-01-12 02:40] LABS: ALBUMIN SERUM 3.2 g/dL (3.5-5.0); ALKALINE PHOSPHATASE 64 U/L (32-92); ALT (SGPT) 93 U/L (10-40); AST (SGOT) 68 U/L (10-42); BILIRUBIN,TOTAL 0.4 mg/dL (0.2-2.0); BLOOD UREA NITROGEN 20 mg/dL (9-23); BUN/CREATININE RATIO 16.66; CALCIUM SERUM 7.8 mg/dL (8.4-10.2); CARBON DIOXIDE 36 mmol/L (22-31); CHLORIDE 92 mmol/L (100-111); CREATININE SERUM 1.2 mg/dL (0.6-1.4); GLOM FILT RATE Estimated ABOVE60 mL/min (>60); GLUCOSE FASTING 208 mg/dL (70-110); POTASSIUM 5.2 mmol/L (3.5-5.1); PROTEIN TOTAL SERUM 6.8 g/dL (6.0-8.3); SODIUM 133 mmol/L (135-145)
[2017-01-12 02:57] LABS: %MB 1.5 % (0.0-4.0); MB 3.8 ng/ml
[2017-01-12 04:23] LABS: ARTERIAL BLD GAS O2 SATURATION 98.3 % (90.0-100.0); ARTERIAL BLOOD GAS CARBOXY HB 0.8 %sat (0.0-9.0); ARTERIAL BLOOD GAS pH 7.237 (7.350-7.450)
[2017-01-12 04:34] LABS: ARTERIAL BLOOD GAS PCO2 84.6 mmHg (35.0-45.0)
[2017-01-12 04:35] LABS: ARTERIAL BLOOD GAS ALLEN TEST NORMAL; ARTERIAL BLOOD GAS ART SITE RIGHT RADIAL; ARTERIAL DRAW? YES
[2017-01-12 07:31] LABS: ARTERIAL BLD GAS O2 SATURATION 95.7 % (90.0-100.0); ARTERIAL BLOOD GAS CARBOXY HB 0.9 %sat (0.0-9.0); ARTERIAL BLOOD GAS MET HB 0.6 %sat (0.0-2.0); ARTERIAL BLOOD GAS pH 7.253 (7.350-7.450)
[2017-01-12 07:36] LABS: ARTERIAL BLOOD GAS ALLEN TEST NORMAL; ARTERIAL BLOOD GAS ART SITE LEFT RADIAL; ARTERIAL BLOOD GAS DELIVERY AVAPS; ARTERIAL BLOOD GAS PCO2 83.9 mmHg (35.0-45.0); ARTERIAL DRAW? YES
[2017-01-12 10:56] LABS: ARTERIAL BLD GAS O2 SATURATION 97.4 % (90.0-100.0); ARTERIAL BLOOD GAS CARBOXY HB 0.7 %sat (0.0-9.0); ARTERIAL BLOOD GAS MET HB 0.8 %sat (0.0-2.0)
[2017-01-12 10:58] LABS: ARTERIAL BLOOD GAS pH 7.119 (7.350-7.450)
[2017-01-12 11:01] LABS: ARTERIAL BLOOD GAS ALLEN TEST NORMAL; ARTERIAL BLOOD GAS ART SITE LEFT RADIAL; ARTERIAL DRAW? YES
[2017-01-12 11:02] LABS: ARTERIAL BLOOD GAS VENT MODE A/C
[2017-01-12 11:15] LABS: ARTERIAL BLOOD GAS PCO2 >104.0 mmHg (35.0-45.0)
[2017-01-12 12:34] LABS: ARTERIAL BLD GAS O2 SATURATION 96.1 % (90.0-100.0); ARTERIAL BLOOD GAS CARBOXY HB 0.8 %sat (0.0-9.0); ARTERIAL BLOOD GAS HCO3 36.7 mmol/L
[2017-01-12 12:45] LABS: ARTERIAL BLOOD GAS PCO2 95.8 mmHg (35.0-45.0); ARTERIAL BLOOD GAS pH 7.192 (7.350-7.450)
[2017-01-12 12:46] LABS: ARTERIAL BLOOD GAS ALLEN TEST NORMAL; ARTERIAL BLOOD GAS ART SITE LEFT RADIAL; ARTERIAL BLOOD GAS VENT MODE A/C; ARTERIAL DRAW? YES
[2017-01-12 14:42] LABS: ARTERIAL BLD GAS O2 SATURATION 95.1 % (90.0-100.0); ARTERIAL BLOOD GAS CARBOXY HB 0.7 %sat (0.0-9.0); ARTERIAL BLOOD GAS HCO3 37.6 mmol/L; ARTERIAL BLOOD GAS MET HB 0.6 %sat (0.0-2.0); ARTERIAL BLOOD GAS PO2 85.5 mmHg (80.0-100)
[2017-01-12 14:44] LABS: ARTERIAL BLOOD GAS PCO2 74.6 mmHg (35.0-45.0)
[2017-01-12 14:45] LABS: ARTERIAL BLOOD GAS ALLEN TEST NORMAL; ARTERIAL BLOOD GAS ART SITE LEFT RADIAL; ARTERIAL BLOOD GAS VENT MODE A/C; ARTERIAL DRAW? YES
[2017-01-12 17:54] LABS: BLOOD UREA NITROGEN 25 mg/dL (9-23); BUN/CREATININE RATIO 22.72; CALCIUM SERUM 7.6 mg/dL (8.4-10.2); CARBON DIOXIDE 30 mmol/L (22-31); CHLORIDE 92 mmol/L (100-111); CREATININE SERUM 1.1 mg/dL (0.6-1.4); GLOM FILT RATE Estimated ABOVE60 mL/min (>60); GLUCOSE FASTING 230 mg/dL (70-110); POTASSIUM 4.3 mmol/L (3.5-5.1); SODIUM 129 mmol/L (135-145)
[2017-01-13 04:00] LABS: ARTERIAL BLD GAS O2 SATURATION 94.4 % (90.0-100.0); ARTERIAL BLOOD GAS CARBOXY HB 0.4 %sat (0.0-9.0); ARTERIAL BLOOD GAS MET HB 0.7 %sat (0.0-2.0); ARTERIAL BLOOD GAS pH 7.321 (7.350-7.450)
[2017-01-13 04:01] LABS: ARTERIAL BLOOD GAS ALLEN TEST NORMAL; ARTERIAL BLOOD GAS ART SITE RIGHT RADIAL; ARTERIAL BLOOD GAS DELIVERY VENT; ARTERIAL BLOOD GAS PO2 78.7 mmHg (80.0-100); ARTERIAL BLOOD GAS VENT MODE AC; ARTERIAL DRAW? YES
[2017-01-13 05:21] LABS: BASOPHIL% 0.2 % (0-2.5); HEMATOCRIT 41.5 % (38.0-50.0); HEMOGLOBIN 13.4 gm/dL (13.0-16.0); LYMPHOCYTE# 0.5 X10e3 (1.0-3.5); LYMPHOCYTE% 4.9 % (17.0-45.0); MEAN CELL VOLUME 91.2 FL (83-96); MEAN CORPUSCULAR HEMOGLOBIN 29.3 PG (28-34); MEAN CORPUSCULAR HGB CONC 32.2 g/dL (30-36); MEAN PLATELET VOLUME 7.1 FL (6.5-11.5); MONOCYTE# 0.5 X10e3 (0-1.0); MONOCYTE% 5.6 % (3.0-12.0); NEUTROPHIL# 8.6 X10e3 (1.5-7.1); NEUTROPHIL% 89.3 % (40-75); PLATELET COUNT 260 X10e3 (140-420); RED BLOOD COUNT 4.55 X10e (3.90-5.60); RED CELL DISTRIBUTION WIDTH 15.2 % (11.0-15.5); WHITE BLOOD COUNT 9.7 X10e3 (4.0-10.5)
[2017-01-13 05:26] LABS: DIFF IND NO
[2017-01-13 06:05] LABS: THYROID STIMULATING HORMONE 1.95 uIU/ml (0.34-5.60)
[2017-01-13 06:11] LABS: BLOOD UREA NITROGEN 27 mg/dL (9-23); BUN/CREATININE RATIO 24.54; CARBON DIOXIDE 30 mmol/L (22-31); CHLORIDE 94 mmol/L (100-111); CREATININE SERUM 1.1 mg/dL (0.6-1.4); GLOM FILT RATE Estimated ABOVE60 mL/min (>60); GLUCOSE FASTING 266 mg/dL (70-110); POTASSIUM 4.3 mmol/L (3.5-5.1); SODIUM 136 mmol/L (135-145)
[2017-01-13 06:12] LABS: FREE THYROXIN (T4) 0.62 ng/dL (0.58-1.64)
[2017-01-13 10:14] LABS: LEGIONELLA AG URINE NEG (NEG)
[2017-01-14 05:57] LABS: BASOPHIL% 0.2 % (0-2.5); HEMATOCRIT 43.3 % (38.0-50.0); HEMOGLOBIN 13.8 gm/dL (13.0-16.0); LYMPHOCYTE# 0.5 X10e3 (1.0-3.5); LYMPHOCYTE% 4.6 % (17.0-45.0); MEAN CELL VOLUME 91.6 FL (83-96); MEAN CORPUSCULAR HEMOGLOBIN 29.3 PG (28-34); MEAN PLATELET VOLUME 7.4 FL (6.5-11.5); MONOCYTE# 0.7 X10e3 (0-1.0); MONOCYTE% 6.5 % (3.0-12.0); NEUTROPHIL# 9.5 X10e3 (1.5-7.1); NEUTROPHIL% 88.7 % (40-75); PLATELET COUNT 286 X10e3 (140-420); RED BLOOD COUNT 4.73 X10e (3.90-5.60); RED CELL DISTRIBUTION WIDTH 15.3 % (11.0-15.5); WHITE BLOOD COUNT 10.7 X10e3 (4.0-10.5)
[2017-01-14 05:59] LABS: DIFF IND NO
[2017-01-14 07:23] LABS: BLOOD UREA NITROGEN 27 mg/dL (9-23); BUN/CREATININE RATIO 24.54; CALCIUM SERUM 8.3 mg/dL (8.4-10.2); CARBON DIOXIDE 31 mmol/L (22-31); CHLORIDE 97 mmol/L (100-111); CREATININE SERUM 1.1 mg/dL (0.6-1.4); GLOM FILT RATE Estimated ABOVE60 mL/min (>60); GLUCOSE FASTING 315 mg/dL (70-110); MAGNESIUM 2.4 mg/dL (1.6-3.0); POTASSIUM 4.4 mmol/L (3.5-5.1); SODIUM 137 mmol/L (135-145)
[2017-01-14 09:24] LABS: ARTERIAL BLD GAS O2 SATURATION 97.2 % (90.0-100.0); ARTERIAL BLOOD GAS ALLEN TEST Y; ARTERIAL BLOOD GAS ART SITE LEFT RADIAL; ARTERIAL BLOOD GAS CARBOXY HB 0.1 %sat (0.0-9.0); ARTERIAL BLOOD GAS DELIVERY VE; ARTERIAL BLOOD GAS HCO3 34.2 mmol/L; ARTERIAL BLOOD GAS PCO2 63.7 mmHg (35.0-45.0); ARTERIAL BLOOD GAS PO2 88.4 mmHg (80.0-100); ARTERIAL BLOOD GAS VENT MODE CPAP; ARTERIAL BLOOD GAS pH 7.338 (7.350-7.450); ARTERIAL DRAW? YES
[2017-01-15 05:26] LABS: BASOPHIL% 0.4 % (0-2.5); HEMATOCRIT 45.6 % (38.0-50.0); HEMOGLOBIN 14.5 gm/dL (13.0-16.0); LYMPHOCYTE# 0.8 X10e3 (1.0-3.5); LYMPHOCYTE% 6.1 % (17.0-45.0); MEAN CELL VOLUME 91.4 FL (83-96); MEAN CORPUSCULAR HGB CONC 31.7 g/dL (30-36); MEAN PLATELET VOLUME 7.4 FL (6.5-11.5); MONOCYTE# 0.7 X10e3 (0-1.0); MONOCYTE% 5.2 % (3.0-12.0); NEUTROPHIL# 11.2 X10e3 (1.5-7.1); NEUTROPHIL% 88.3 % (40-75); PLATELET COUNT 306 X10e3 (140-420); RED BLOOD COUNT 4.99 X10e (3.90-5.60); RED CELL DISTRIBUTION WIDTH 15.3 % (11.0-15.5); WHITE BLOOD COUNT 12.6 X10e3 (4.0-10.5)
[2017-01-15 05:30] LABS: DIFF IND NO
[2017-01-15 05:37] LABS: INR 1.1; PROTHROMBIN TIME (PATIENT) 11.7 SECONDS (9.6-11.5)
[2017-01-15 06:41] LABS: BLOOD UREA NITROGEN 25 mg/dL (9-23); BUN/CREATININE RATIO 27.77; CALCIUM SERUM 8.4 mg/dL (8.4-10.2); CARBON DIOXIDE 38 mmol/L (22-31); CHLORIDE 98 mmol/L (100-111); CREATININE SERUM 0.9 mg/dL (0.6-1.4); GLOM FILT RATE Estimated ABOVE60 mL/min (>60); GLUCOSE FASTING 198 mg/dL (70-110); POTASSIUM 4.5 mmol/L (3.5-5.1); SODIUM 141 mmol/L (135-145)
[2017-01-15 07:43] LABS: ARTERIAL BLD GAS O2 SATURATION 93.9 % (90.0-100.0); ARTERIAL BLOOD GAS CARBOXY HB 0.5 %sat (0.0-9.0); ARTERIAL BLOOD GAS HCO3 39.2 mmol/L; ARTERIAL BLOOD GAS MET HB 0.7 %sat (0.0-2.0); ARTERIAL BLOOD GAS pH 7.364 (7.350-7.450)
[2017-01-15 07:44] LABS: ARTERIAL BLOOD GAS ALLEN TEST Y; ARTERIAL BLOOD GAS ART SITE LEFT RADIAL; ARTERIAL BLOOD GAS DELIVERY FACE TENT; ARTERIAL BLOOD GAS PCO2 68.9 mmHg (35.0-45.0); ARTERIAL BLOOD GAS PO2 76.4 mmHg (80.0-100); ARTERIAL DRAW? YES
[2017-01-16 05:49] LABS: BASOPHIL% 0.1 % (0-2.5); HEMATOCRIT 48.1 % (38.0-50.0); HEMOGLOBIN 15.6 gm/dL (13.0-16.0); LYMPHOCYTE# 0.5 X10e3 (1.0-3.5); LYMPHOCYTE% 5.7 % (17.0-45.0); MEAN CELL VOLUME 90.4 FL (83-96); MEAN CORPUSCULAR HEMOGLOBIN 29.3 PG (28-34); MEAN CORPUSCULAR HGB CONC 32.4 g/dL (30-36); MEAN PLATELET VOLUME 7.5 FL (6.5-11.5); MONOCYTE# 0.5 X10e3 (0-1.0); MONOCYTE% 6.1 % (3.0-12.0); NEUTROPHIL# 7.8 X10e3 (1.5-7.1); NEUTROPHIL% 88.1 % (40-75); PLATELET COUNT 278 X10e3 (140-420); RED BLOOD COUNT 5.32 X10e (3.90-5.60); WHITE BLOOD COUNT 8.9 X10e3 (4.0-10.5)
[2017-01-16 05:59] LABS: DIFF IND NO
[2017-01-16 06:01] LABS: INR 1.2; PROTHROMBIN TIME (PATIENT) 12.7 SECONDS (9.6-11.5)
[2017-01-16 06:25] LABS: BLOOD UREA NITROGEN 28 mg/dL (9-23); BUN/CREATININE RATIO 31.11; CALCIUM SERUM 8.3 mg/dL (8.4-10.2); CARBON DIOXIDE 39 mmol/L (22-31); CHLORIDE 94 mmol/L (100-111); CREATININE SERUM 0.9 mg/dL (0.6-1.4); GLOM FILT RATE Estimated ABOVE60 mL/min (>60); GLUCOSE FASTING 182 mg/dL (70-110); POTASSIUM 4.3 mmol/L (3.5-5.1); SODIUM 135 mmol/L (135-145)
[2017-01-17 04:21] LABS: ARTERIAL BLD GAS O2 SATURATION 95.3 % (90.0-100.0); ARTERIAL BLOOD GAS CARBOXY HB 0.6 %sat (0.0-9.0); ARTERIAL BLOOD GAS HCO3 42.2 mmol/L; ARTERIAL BLOOD GAS MET HB 0.9 %sat (0.0-2.0); ARTERIAL BLOOD GAS pH 7.467 (7.350-7.450)
[2017-01-17 04:29] LABS: ARTERIAL BLOOD GAS ALLEN TEST NORMAL; ARTERIAL BLOOD GAS ART SITE LEFT RADIAL; ARTERIAL BLOOD GAS DELIVERY FACE TENT; ARTERIAL BLOOD GAS PCO2 58.4 mmHg (35.0-45.0); ARTERIAL DRAW? YES
[2017-01-17 05:35] LABS: INR 1.4; PROTHROMBIN TIME (PATIENT) 15.4 SECONDS (9.6-11.5)
[2017-01-17 09:36] LABS: BASOPHIL% 0.4 % (0-2.5); EOSINOPHIL% 0.1 % (0.0-7.0); HEMATOCRIT 50.4 % (38.0-50.0); HEMOGLOBIN 16.2 gm/dL (13.0-16.0); LYMPHOCYTE# 0.5 X10e3 (1.0-3.5); LYMPHOCYTE% 4.6 % (17.0-45.0); MEAN CELL VOLUME 91.6 FL (83-96); MEAN CORPUSCULAR HEMOGLOBIN 29.5 PG (28-34); MEAN CORPUSCULAR HGB CONC 32.2 g/dL (30-36); MEAN PLATELET VOLUME 7.9 FL (6.5-11.5); MONOCYTE# 0.6 X10e3 (0-1.0); MONOCYTE% 6.4 % (3.0-12.0); NEUTROPHIL# 8.8 X10e3 (1.5-7.1); NEUTROPHIL% 88.5 % (40-75); PLATELET COUNT 291 X10e3 (140-420); RED BLOOD COUNT 5.51 X10e (3.90-5.60); RED CELL DISTRIBUTION WIDTH 14.8 % (11.0-15.5); WHITE BLOOD COUNT 9.9 X10e3 (4.0-10.5)
[2017-01-17 09:37] LABS: DIFF IND NO
[2017-01-17 09:52] LABS: BLOOD UREA NITROGEN 30 mg/dL (9-23); CALCIUM SERUM 8.7 mg/dL (8.4-10.2); CARBON DIOXIDE 39 mmol/L (22-31); CHLORIDE 93 mmol/L (100-111); GLOM FILT RATE Estimated ABOVE60 mL/min (>60); GLUCOSE FASTING 205 mg/dL (70-110); POTASSIUM 4.5 mmol/L (3.5-5.1); SODIUM 140 mmol/L (135-145)
[2017-01-18 05:14] LABS: BASOPHIL# 0.1 X10e3 (0-0.3); BASOPHIL% 0.5 % (0-2.5); EOSINOPHIL% 0.1 % (0.0-7.0); HEMATOCRIT 49.1 % (38.0-50.0); HEMOGLOBIN 15.9 gm/dL (13.0-16.0); LYMPHOCYTE% 8.9 % (17.0-45.0); MEAN CELL VOLUME 90.5 FL (83-96); MEAN CORPUSCULAR HEMOGLOBIN 29.3 PG (28-34); MEAN CORPUSCULAR HGB CONC 32.4 g/dL (30-36); MEAN PLATELET VOLUME 7.9 FL (6.5-11.5); MONOCYTE# 1.3 X10e3 (0-1.0); MONOCYTE% 11.2 % (3.0-12.0); NEUTROPHIL% 79.3 % (40-75); PLATELET COUNT 289 X10e3 (140-420); RED BLOOD COUNT 5.42 X10e (3.90-5.60); WHITE BLOOD COUNT 11.4 X10e3 (4.0-10.5)
[2017-01-18 05:26] LABS: INR 1.9; PROTHROMBIN TIME (PATIENT) 20.4 SECONDS (9.6-11.5)
[2017-01-18 05:32] LABS: DIFF IND NO
[2017-01-18 06:51] LABS: BLOOD UREA NITROGEN 33 mg/dL (9-23); CALCIUM SERUM 8.5 mg/dL (8.4-10.2); CARBON DIOXIDE 36 mmol/L (22-31); CHLORIDE 95 mmol/L (100-111); CREATININE SERUM 1.1 mg/dL (0.6-1.4); GLOM FILT RATE Estimated ABOVE60 mL/min (>60); GLUCOSE FASTING 194 mg/dL (70-110); SODIUM 139 mmol/L (135-145)
[2017-01-19 06:10] LABS: INR 2.6; PROTHROMBIN TIME (PATIENT) 28.3 SECONDS (9.6-11.5)
[2017-01-19 06:21] LABS: BLOOD UREA NITROGEN 33 mg/dL (9-23); CALCIUM SERUM 8.6 mg/dL (8.4-10.2); CARBON DIOXIDE 38 mmol/L (22-31); CHLORIDE 91 mmol/L (100-111); CREATININE SERUM 1.1 mg/dL (0.6-1.4); GLOM FILT RATE Estimated ABOVE60 mL/min (>60); GLUCOSE FASTING 272 mg/dL (70-110); MAGNESIUM 2.3 mg/dL (1.6-3.0); POTASSIUM 4.5 mmol/L (3.5-5.1); SODIUM 136 mmol/L (135-145)
[2017-01-20 06:27] LABS: INR 2.1; PROTHROMBIN TIME (PATIENT) 22.7 SECONDS (9.6-11.5)
[2017-01-20] MEDS ORDERED: PREDNISONE PO (13:01)
[2017-01-20] MEDS ORDERED: TYL325 PO (13:04)
[2017-01-20] MEDS ORDERED: CARTIA XT PO (13:06)
[2017-01-20] MEDS ORDERED: FUROSEMIDE40 MG PO (13:07)
[2017-01-20] MEDS ORDERED: COUMADIN5 MG PO (13:08)
== END 2017-01-20 13:50 | disposition home or self-care (01) | DRG 208 ==
LOC: CED 12:31 → CEDOF 14:25 → CICCU3 20:31 → C3A PCU 01-17 17:44
PROVIDERS: Emergency Medicine; Family Medicine; Internal Medicine; Internal Medicine Cardiovascular Disease; Internal Medicine Pulmonary Disease; Nurse Practitioner
PROC: 5A1945Z Respiratory Ventilation, 24-96 Consecutive Hours (ICD-10-PCS; 2017-01-12)
PROC: 0DH67UZ Insertion of Feeding Device into Stomach, Via Natural or Artificial Opening (ICD-10-PCS; 2017-01-12)
PROC: 0BH17EZ Insertion of Endotracheal Airway into Trachea, Via Natural or Artificial Opening (ICD-10-PCS; 2017-01-12)
PROC: B24BZZZ Ultrasonography of Heart with Aorta (ICD-10-PCS; principal; 2017-01-13)
DX: J96.02 Acute respiratory failure with hypercapnia (principal); J90 Pleural effusion, not elsewhere classified; J18.9 Pneumonia, unspecified organism; I27.81 Cor pulmonale (chronic); J44.0 Chronic obstructive pulmonary disease with (acute) lower respiratory infection; Z68.41 Body mass index [BMI] 40.0-44.9, adult; L03.115 Cellulitis of right lower limb; I48.0 Paroxysmal atrial fibrillation; J44.1 Chronic obstructive pulmonary disease with (acute) exacerbation; J98.11 Atelectasis; I25.2 Old myocardial infarction; G47.33 Obstructive sleep apnea (adult) (pediatric); E11.9 Type 2 diabetes mellitus without complications; Z79.4 Long term (current) use of insulin; E03.9 Hypothyroidism, unspecified; J20.9 Acute bronchitis, unspecified; Z79.01 Long term (current) use of anticoagulants; Z79.82 Long term (current) use of aspirin; F17.200 Nicotine dependence, unspecified, uncomplicated; E66.01 Morbid (severe) obesity due to excess calories; J96.01 Acute respiratory failure with hypoxia; R74.0 Nonspecific elevation of levels of transaminase and lactic acid dehydrogenase [LDH]
CPT/HCPCS: 36415; 36600; 71010; 71275; 74000; 80048; 80053; 80076; 82308; 82550; 82553; 82803; 82947; 83605; 83735; 83880; 84439; 84443; 84484; 85025; 85379; 85610; 87040; 87070; 87205; 87449; 87633; 87899; 92610; 93005; 93306; 94002; 94003; 94640; 94660; 94664; 94760; 94761; 96361; 96375; 97110; 97116; 97162; 97530; 99291; C9113; G8978-GP; G8979-GP; J0282; J1120; J1650; J1815; J1940; J1956; J2250; J2920; J2930; J3010; Q9967

== ENCOUNTER 2017-05-20 05:22 | Inpatient (IN) | payer OTHER ==
--- NOTE | ~2017-05-20 | DS ---
Unit #: [id number] #: [id number] Patient: CHEYENNE VINSON [id number] [address] [place], [place] [address] [id number] I MR#: [id number] NAME: CHEYENNE VINSON. ROOM: 570 Age: 56 Sex: M Admission Date: 05/20/2017 : 1960 Discharge Date: 05/22/2017 Attending Physician: Artem Salguero M.D. Primary Care Physician: Brennan Oliva Jr., A.P.R.N. DISCHARGE SUMMARY REASON FOR ADMISSION Acute hypoxic respiratory failure. HISTORY OF PRESENT ILLNESS/HOSPITAL COURSE The patient is a very pleasant 56-year-old male, prior history of end-stage COPD followed by Dr. Heck of [facility], [facility], who states that he recently went to [employer] for some shopping episodes. He began developing acute onset of dyspnea as well as progressive fatigue. He subsequently tried to increase his oxygen at home, was noted to be markedly dyspneic and subsequently presented to the ER for further evaluation. While here, consultation was placed to Dr. Espinal and associates, saw and evaluated the patient. He was placed on IV Solu-Medrol and aerosols as well as other routine supportive medications. His blood cultures were ascertained. This hospital course did not show any acute bacterial growth. He did undergo a chest x-ray, which did not show any acute process. A CT chest without contrast was also performed. It did show severe pulmonary emphysema and pleural thickening was also noted. Follow up in 6 months was recommended. Per report, there was also noted to be a stable 2.8 cm right adrenal mass, which was unchanged from November of 2016. Continue followup as recommended, but no acute infiltrate was noted. Today, at the time of discharge, the patient's white count is mildly elevated at 12.7 and hemoglobin 14.4. Electrolytes are within normal limits. Of note, the patient's hemoglobin A1c this hospital course was 6.1%. Currently, the patient is at his baseline between 4 to 5 L. He is otherwise feeling well and he wishes to go home. He should follow up with his routine evp operations, Dr. Heck as an outpatient for ongoing care. FINAL DISCHARGE DIAGNOSES 1. Acute on chronic hypoxic respiratory failure. 2. End-stage chronic obstructive pulmonary disease. 3. Morbid obesity. 4. Hypothyroidism. 5. Diabetes. 6. Probable obstructive sleep apnea. Unit #: [id number] #: [id number] Patient: CHEYENNE VINSON 7. Restrictive lung disease secondary to elevated BMI. 8. Paroxysmal atrial fibrillation on chronic anticoagulation with Coumadin. 9. 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 10. Type 2 diabetes with excellent control. Hemoglobin A1c is 6.1%. FINAL DISCHARGE MEDICATIONS Albuterol nebulizer solution q.2 p.r.n.; DuoNeb aerosol solution q.6 hours scheduled; prednisone 60 mg x1 day, then 50 mg x5 days, then 40 mg x4 days, then 30 mg x3 days, 20 mg x2 days, then 10 mg x1 day as written by Dr. Espinal; Breo Ellipta one puff daily; Zithromax 250 mg p.o. daily x4 days; Coumadin 7.5 mg p.o. Monday through Monday, 10 mg Monday and Monday; Neurontin 600 mg p.o. q.8; metformin 1000 mg p.o. b.i.d.; Basaglar KwikPen 20 units subcu at bedtime; Tylenol 650 mg p.o. q.6 p.r.n.; Daliresp 500 mcg p.o. daily; Glucotrol 5 mg p.o. b.i.d. with breakfast and dinner; Synthroid 150 mcg p.o. daily. DISCHARGE CONDITION Stable. DISCHARGE DISPOSITION Home. Dictated by... Melvin Salcedo/kimi TD: 05/24/2017 03:44 JOB #: [id number] DISCHARGE SUMMARY Page 1 of 1 X Artem Salguero MD X DISCHARGE SUMMARY
--- NOTE | ~2017-05-20 | EKG ---
PATIENT: CHEYENNE VINSON UNIT #: [id number] Ventricular Rate: 84 BPM Atrial Rate: 84 BPM P-R Interval: 148 ms QRS Duration: 74 ms Q-T Interval: 358 ms QTC Calculation(Bezet): 423 ms P [place]: 37 degrees Calculated R [place]: 13 degrees Calculated T [place]: 63 degrees Diagnosis Line: Normal sinus rhythm Diagnosis Line: Normal ECG Diagnosis Line: No previous ECGs available Diagnosis Line: Confirmed by CHRIS HINTON MD ([id number]) on Diagnosis Line: 05/21/2017 10:01:25 AM INTERPRETING MD: JENN
--- NOTE | ~2017-05-20 | HP ---
Unit #: [id number] #: [id number] Patient: CHEYENNE VINSON [id number] [address] [address] [id number] I MR#: [id number] NAME: CHEYENNE VINSON ROOM: 570 Age: 56 Sex: M Admission Date: 05/20/2017 : 1960 Attending Physician: Artem Salguero M.D. Primary Care Physician: Brennan Oliva Jr., A.P.R.N. HISTORY AND PHYSICAL REASON FOR ADMISSION Acute hypoxic respiratory failure. HISTORY OF PRESENT ILLNESS The patient is a very pleasant 56-year-old male who states several days ago he went to [employer] for some shopping. He states ever since he came back he has had difficulty with breathing, increased dyspnea on exertion as well as he has been using his oxygen more than usual. He routinely follows up with Dr. Heck of [facility]. His normal PCP is Dr. Oliva. He tells me that at home he routinely takes his medications as prescribed. He uses home nebulizer as well. He is not sure what exactly happened on this particular occasion. His last hospital admission to our institution was in January 2017. He was seen in consultation by Dr. Espinal at that point in time and eventually had been discharged home. PAST MEDICAL HISTORY 1. Recent hospital admission January 2017 for similar circumstance. 2. Hypothyroidism. 3. End stage COPD, on four liters, followed by Dr. Heck of [facility]. 4. Diabetes. 5. Probable obstructive sleep apnea. 6. Morbid obesity. PAST SURGICAL HISTORY Ventral hernia repair. SOCIAL HISTORY Resides at home with his . He continues to smoke but is trying to wean off of cigarettes. He no longer consumes alcohol. FAMILY HISTORY No positive history of any diabetes or coronary artery disease. ALLERGIES No known drug allergies. MEDICATIONS Home medications include: 1. Albuterol. Unit #: [id number] #: [id number] Patient: CHEYENNE VINSON 2. Aspirin. 3. Lipitor. 4. Lasix. 5. Neurontin. 6. Glucotrol. 7. Lantus. 8. Levothyroxine. 9. Glucophage. 10. ProAir. 11. Spiriva. 12. Ventolin. 13. Symbicort. 14. Prednisone. 15. Cartia. 16. Lasix. 17. Coumadin. REVIEW OF SYSTEMS Please see HPI. Twelve point otherwise negative except for those positives noted in the HPI. PHYSICAL EXAMINATION VITAL SIGNS: Temperature 97.8, pulse 95, respiratory rate 15, blood pressure 149/65. GENERAL APPEARANCE: The patient is a 56-year-old, obese male, sitting on the edge of the bed breathing comfortably with no visible accessory muscle use. HEAD EXAM: Atraumatic. EYE EXAM: Reveals his right eye to be slightly lower than his left. He states that "it has always been that way." His vision is normal. Extraocular muscles do appear to be intact bilaterally. NECK EXAM: Supple. No accessory muscle use currently noted. No JVD noted, no carotid bruit noted. CVS: S1, S2 audible. I do not hear a murmur. RESPIRATORY: Prolonged expiration noted with respiratory wheezes. Coarse breath sounds are noted as well. GI/ABDOMEN: Distention noted, nontender. EXTREMITIES: Lower extremity - 1+ lower extremity noted bilaterally. No calf tenderness. NEUROLOGICAL EXAM: The patient is A and O x3. No evidence of any focal nerve deficits. PSYCHIATRIC EXAM: The patient demonstrates normal mood and affect. INITIAL ER COURSE The patient received Solu-Medrol, Robitussin as well as initiated on Rocephin and Zithromax. ER laboratory studies/radiological imaging does show increased interstitial markings noted on chest x-ray. Possible edema versus acute infiltrate. Laboratory studies did show an elevated white count of 11.4, glucose 117, CO2 of 35, BNP of 63. EKG shows normal sinus, rate at 84. INITIAL IMPRESSION 1. Acute hypoxic respiratory failure. Unit #: [id number] #: [id number] Patient: CHEYENNE VINSON 2. Community-acquired pneumonia. 3. Acute exacerbation of chronic obstructive pulmonary disease. 4. Type 2 diabetes with insulin dependence. 5. Lower extremity neuropathy, likely secondary to diabetes. 6. Hypothyroidism with prior history of radioactive iodine. 7. Hyperlipidemia. 8. Questionable history of prior heart failure, no details in chart. PLAN Admission to telemetry floor. O2 support. IV Solu-Medrol. IV Rocephin, IV Zithromax as is although his white count is near normal. I doubt he truly has infiltrate. Will check CT noncontrast chest. (1) cardiac enzymes, routine laboratory studies. Check hemoglobin A1c, low dose NovoLog sliding scale. Resume home medications with the exception of Glucophage. Plans have been reviewed with patient in detail. He was once again counseled on smoking cessation. He expressed understanding. All questions were answered to satisfaction. Patient is Full Code. Dictated by Melvin Salcedo/vineet TD: 05/20/2017 14:05 JOB #: [id number] HISTORY AND PHYSICAL Page 1 of 1 X Artem Salguero MD X HISTORY AND PHYSICAL
--- NOTE | ~2017-05-20 | CO ---
Unit #: [id number] #: [id number] Patient: CHEYENNE VINSON [id number] [address] [place], [place] [address] [id number] I MR#: [id number] NAME: CHEYENNE VINSON. ROOM: [facility] Age: 56 Sex: M Admission Date: 05/20/2017 : 1960 Attending Physician: Artem Salguero M.D. Primary Care Physician: Brennan Oliva Jr., A.P.RDeboraN. Consultation Date: 05/21/2017 CONSULTATION REPORT HISTORY OF PRESENT ILLNESS This is a 56-year-old gentleman with a history of COPD who has presented before to the hospital approximately two months ago. He is a patient of Dr. Heck with [facility] usually goes to see them. He is having a followup on a CT chest with emphysema and a masslike round atelectasis, which apparently appears to be stable. The patient states that he was doing fine until four days prior to admission when he went to [facility] to have his pneumonia shot. He got pneumonia and tetanus shot there at which point, the patient became progressively short of breath. His also became short of breath. He is concerned that he picked up a bronchitis while there. The patient was noted to be hypoxic on his home O2 of 3 L nasal cannula. He presented to the emergency room with increasing dyspnea. He has been placed on 4 L Oxymizer and currently saturating 92%. Shortness of breath is slightly improved since he was placed on steroids and antibiotics. We have been asked to see him and help manage COPD. PAST MEDICAL HISTORY Significant for COPD, chronic hypoxic respiratory failure, hypothyroidism, diabetes, probable obstructive sleep apnea, morbid obesity on 3 L nasal cannula at home. PAST SURGICAL HISTORY Significant for ventral hernia repair. FAMILY HISTORY Not positive for history of coronary artery disease or COPD. The patient resides at home with his . He is a current smoker, which he is trying to wean off. No longer consumes alcohol. Denies any sort of recreational substance. ALLERGIES The patient has no known medical allergies. HOME MEDICATIONS 1. Insulin glargine 20 units subcu at bedtime. 2. Ventolin 1 puff every 6 hours. 3. Breo 100/25 one puff daily. 4. Glucotrol 5 mg p.o. b.i.d. 5. Gabapentin 600 mg p.o. t.i.d. 6. Aspirin. 7. Acetaminophen. 8. Caffeine t.i.d. as needed. Unit #: [id number] #: [id number] Patient: CHEYENNE VINSON 9. Coumadin 7.5 mg daily. 10. Warfarin 10 mg daily. 11. Metformin 1000 mg p.o. b.i.d. 12. Levothyroxine 150 mcg p.o. daily. PHYSICAL EXAMINATION VITAL SIGNS: T-current is 98.1, pulse 62, respiratory rate 18, blood pressure 123/59, saturation 93% on 4.5 L nasal cannula. In's and out's not recorded. HEENT: Extraocular movements are intact. CHEST: Clear to auscultation bilaterally. Chest shows very diffuse soft wheezes bilaterally. A few soft crackles as well. NECK: Greater than 19 inches in circumference. There is mild accessary muscle use. ABDOMEN: Soft, nontender, and nondistended. EXTREMITIES: Shows +1 edema. CARDIOVASCULAR: Regular rate. No gallop. DIAGNOSTIC STUDIES LABORATORY RESULTS: White count 13.2, hemoglobin 13.9, platelets of 303. BUN and creatinine 24/0.8, potassium 5.3, bicarb 36, otherwise chem-7 within normal limits. INR is 2.1. CT chest shows emphysema, no infiltrate, however there is effusion, mass like atelectasis. ASSESSMENT AND PLAN Acute exacerbation of chronic obstructive pulmonary disease. Continue supplemental oxygen. Continue steroids. Continue antibiotics. The patient is feeling better and would like to leave soon. I am going to try to see if we can get him a script for an Oxymizer. He also would like to have an increase in his Breo and I would like to put him on a higher oxygen flow, but I will write him script for an Oxymizer to be sent home to use while the patient is feeling more short of breath. The patient should follow up with Dr. Heck within 2 to 3 weeks. Please page me at [phone] if you have any questions. Dictated by... Melvin Fink/kimi TD: 05/22/2017 06:16 JOB #: [id number] CONSULTATION REPORT Page 1 of 1 X Lucas Espinal MD CONSULTATION REPORT
--- NOTE | ~2017-05-20 | BMI ---
[facility] Nutrition Therapy DATE: 05/20/17 Patient: CHEYENNE VINSON Physician: KYLE Address: [address] [place] [address] Room/Bed: [address] [place] [address], Zip: [place] [address] Admit Date: 05/20/17 Date of : 56 Height: 6 1 Weight: 318 144.24 HIGH BMI NOTE: DX: 56 y/o male admitted with respiratory failure ANTHROPOMETRICS: Ht: 73", Wt: 318 lbs, BMI: 41 DIET: NPO INTERVENTION: Restricted diet, meds/fluids per MD RECOMMENDATIONS: Advance to consistent carb/healthy heart diet as tolerated to promote a gradual weight loss towards a healthy BMI range. Respectfully, Veronica Gannon RD, LD [facility] cc: client file
--- NOTE | ~2017-05-20 | EKG ---
PATIENT: CHEYENNE VINSON UNIT #: [id number] Ventricular Rate: 49 BPM Atrial Rate: 49 BPM P-R Interval: 162 ms QRS Duration: 92 ms Q-T Interval: 442 ms QTC Calculation(Bezet): 399 ms P [place]: 32 degrees Calculated R [place]: 61 degrees Calculated T [place]: 24 degrees Diagnosis Line: Marked sinus bradycardia Diagnosis Line: Abnormal ECG Diagnosis Line: When compared with ECG of 20-MAY-2017 05:50, Diagnosis Line: (unconfirmed) Diagnosis Line: Vent. rate has decreased BY 35 BPM Diagnosis Line: Diagnosis Line: Confirmed by CHRIS HINTON MD ([id number]) on Diagnosis Line: 05/21/2017 10:10:09 AM INTERPRETING BRENDEN ABRAJAS
--- NOTE | ~2017-05-20 | CT57 ---
[facility] A Service of [facility] RADIOLOGY TEXT RESULTS PATIENT: CHEYENNE VINSON LOCATION: [facility] 570-01 : 56 UNIT #: [id number] AGE: [address]: Artem Salguero MD SEX: M ORDER DR: [id number] [facility] [address] [facility]. [place], [place] [address] [id number] I MR#: [id number] Acc #: [id number] NAME: CHEYENNE VINSON : 1960 SEX: M STUDY DATE/TIME: 05/20/2017 13:40 UNIT: [facility] ROOM: [facility] STUDY DESCRIPTION: CT Chest Wo Cont Attending Physician: Artem Salguero M.D. Ordering Physician: Artem Salguero M.D. Primary Care Physician: Brennan Oliva Jr., A.P.R.N. MEDICAL IMAGING REPORT This report is preliminary unless electronic signature is present EXAM CT chest, noncontrast, 05/20/2017. HISTORY 56-year-old male hospital inpatient with 4-day history of shortness of air. He has a history of COPD. TECHNIQUE CT examination of the chest was performed without IV contrast. This CT exam was performed with one or more of the following radiation dose reduction techniques: automatic exposure control, adjustment of mA and/or kV according to patient size, and iterative reconstruction. COMPARISON Chest x-ray, 05/20/2017. FINDINGS The exam shows severe diffuse centrilobular and paracentral pulmonary emphysema, greatest in the upper lobes. [id number] chronic pleural thickening and subpleural fibrotic scarring surrounds both lung bases, and there is benign-appearing mass-like rounded atelectasis along the posterior margin of the right lower lobe. Although, this has a likely benign appearance, a followup chest CT examination in 6 months is recommended. There is also some mild bronchiolar nodularity in the posterior left lower lobe that is most likely inflammatory. The lungs are otherwise clear. There is no pleural effusion. No suspicious mass or adenopathy is seen within the mediastinum or pulmonary kaila. Limited upper abdominal images show hepatomegaly and mild diffuse hepatic steatosis. A 2.8 cm right adrenal mass is unchanged since 11/25/2016. Continued attention on follow up recommended. IMPRESSION STS. [facility] A Service of [facility] RADIOLOGY TEXT RESULTS PATIENT: CHEYENNE VINSON LOCATION: [facility] 570-01 : 56 UNIT #: [id number] AGE: [address]: Artem Salguero MD SEX: M ORDER DR: 1. Severe pulmonary emphysema. No definite acute pulmonary infiltrate. No pleural effusion. 2. Extensive chronic pleural thickening and subpleural pulmonary scarring surrounding both lung bases. There is also mass-like rounded atelectasis in the posterior right lower lobe. This has a likely benign appearance, but a follow-up chest CT examination in 6 months is recommended to document stability. 3. Mild bronchovascular nodularity in the left lower lobe posteriorly most likely inflammatory. 4. Stable 2.8 cm right adrenal mass, unchanged since 11/25/2016. Continued attention on follow up recommended. This was not present on a 2013 exam. 5. Hepatomegaly. Diffuse hepatic steatosis. Dictated by... Horacio Montgomery M.D. THIS IS AN ELECTRONICALLY VERIFIED REPORT Horacio Montgomery M.D. at 05/21/2017 12:51 PM Kelsey TD: 05/20/2017 23:45 JOB #: [id number] MEDICAL IMAGING REPORT Page 1 of 1 COPY
--- NOTE | ~2017-05-20 | CR72 ---
[facility] A Service of [facility] RADIOLOGY TEXT RESULTS PATIENT: CHEYENNE VINSON LOCATION: [facility] 570-01 : 56 UNIT #: [id number] AGE: [address]: Artem Salguero MD SEX: M ORDER DR: [id number] [facility] [address] [facility]. [place], [place] [address] [id number] I MR#: [id number] Acc #: [id number] NAME: CHEYENNE VINSON : 1960 SEX: M STUDY DATE/TIME: 05/20/2017 6:15 UNIT: [facility] ROOM: [facility] STUDY DESCRIPTION: CR Chest Single View Portable Attending Physician: Artem Salguero M.D. Referring Physician: Juan Pelletier M.D. Ordering Physician: Ed Jasen Mobley M.D. Primary Care Physician: Brennan Oliva Jr., A.P.R.N. MEDICAL IMAGING REPORT This report is preliminary unless electronic signature is present EXAM Chest, single view, portable. CLINICAL HISTORY Short of air, cough, right-sided chest pain for a few days. COMMENT Single frontal portable view of the chest timed 6:15 on 05/20/2017. COMPARISON Compared to 01/18/2017. FINDINGS Cardiac silhouette is top normal. There is an abnormal appearance to the lung markings with what is likely underlying chronic lung disease. There is some worsening however in the markings and there could be a component of superimposed interstitial edema. Please correlate for clinical evidence of mild volume overload versus atypical infectious process. Chronic blunting noted at the left costophrenic angle. Emphysematous changes noted at apices. No pneumothorax. IMPRESSION 1. Patient has underlying chronic lung disease. There is increase in abnormal interstitial markings since prior film. Please correlate for causes of interstitial edema such as possible volume overload versus atypical infectious process. Chronic blunting noted of the left costophrenic angle. No pneumothorax. Dictated by... Tawny Amaya M.D. [facility] A Service of [facility] RADIOLOGY TEXT RESULTS PATIENT: CHEYENNE VINSON LOCATION: [facility] 570-01 : 56 UNIT #: [id number] AGE: [address]: Artem Salguero MD SEX: M ORDER DR: THIS IS AN ELECTRONICALLY VERIFIED REPORT Tawny Amaya M.D. at 05/21/2017 7:18 AM KATELIN/jhonatan TD: 05/20/2017 16:38 JOB #: [id number] MEDICAL IMAGING REPORT Page 1 of 1 COPY
[~2017-05-20 05:22] MED LIST changes: +CARTIA XT PO; +COUMADIN5 MG PO; +FUROSEMIDE40 MG PO; +PREDNISONE PO; +PROAIR HFA8.5 GM INH; +TYL325 PO; +VENTOLIN5 MG/ML INH
[2017-05-20 06:19] LABS: POC - TROPONIN <0.05 ng/mL (<=0.05)
[2017-05-20 06:27] LABS: ALBUMIN SERUM 4.3 g/dL (3.5-5.0); BILIRUBIN, DIRECT 0.2 mg/dL (0.0-0.2); BILIRUBIN,INDIRECT 0.5 mg/dL (0.0-0.9); BILIRUBIN,TOTAL 0.7 mg/dL (0.2-2.0); BUN/CREATININE RATIO 18.88; CREATININE SERUM 0.9 mg/dL (0.6-1.4); GLOM FILT RATE Estimated 108.7 mL/min (>60); PROTEIN TOTAL SERUM 8.5 g/dL (6.0-8.3)
[2017-05-20 07:05] LABS: BASOPHIL% 0.4 % (0-2.5); EOSINOPHIL# 0.2 X10e3 (0-0.7); EOSINOPHIL% 1.6 % (0.0-7.0); HEMOGLOBIN 14.4 gm/dL (13.0-16.0); LYMPHOCYTE# 1.1 X10e3 (1.0-3.5); LYMPHOCYTE% 9.5 % (17.0-45.0); MEAN CELL VOLUME 92.3 FL (83-96); MEAN CORPUSCULAR HEMOGLOBIN 28.4 PG (28-34); MEAN CORPUSCULAR HGB CONC 30.7 g/dL (30-36); MEAN PLATELET VOLUME 7.6 FL (6.5-11.5); MONOCYTE# 0.9 X10e3 (0-1.0); MONOCYTE% 7.5 % (3.0-12.0); NEUTROPHIL# 9.2 X10e3 (1.5-7.1); PLATELET COUNT 317 X10e3 (140-420); RED BLOOD COUNT 5.09 X10e (3.90-5.60); RED CELL DISTRIBUTION WIDTH 16.1 % (11.0-15.5); WHITE BLOOD COUNT 11.4 X10e3 (4.0-10.5)
[2017-05-20 07:07] LABS: DIFF IND NO
[2017-05-20 07:12] LABS: INR 1.9; PARTIAL THROMBOPLASTIN TIME 43.9 SECONDS (23.5-31.3); PROTHROMBIN TIME (PATIENT) 20.7 SECONDS (10.0-11.7)
[2017-05-20] MEDS ORDERED: BASAGLAR K100 UNIT/1 SUBQ (07:58)
[2017-05-20] MEDS ORDERED: ALBUTEROL17 GM INH (07:58)
[2017-05-20] MEDS ORDERED: BREO ELLIPTA 11 EACH INH (07:59)
[2017-05-20] MEDS ORDERED: GABAPENTIN600 MG PO (08:00)
[2017-05-20] MEDS ORDERED: GLUCOTROL PO (08:00)
[2017-05-20] MEDS ORDERED: EQL HEADACHE R1 EACH PO (08:01)
[2017-05-20] MEDS ORDERED: COUMADIN5 MG PO (08:02)
[2017-05-20] MEDS ORDERED: METFORMIN HCL1000 M1 PO (08:03)
[2017-05-20] MEDS ORDERED: WARFARIN SODIUM10 M1 PO (08:03)
[2017-05-20] MEDS ORDERED: LEVOTHYROXINE150 MCG PO (08:04)
[2017-05-20 15:11] LABS: %MB 5.9 % (0.0-4.0); MB 5.4 ng/ml
[2017-05-20 19:47] LABS: %MB 7.5 % (0.0-4.0); MB 6.3 ng/ml
[2017-05-21 05:32] LABS: HEMATOCRIT 44.7 % (38.0-50.0); HEMOGLOBIN 13.9 gm/dL (13.0-16.0); MEAN CELL VOLUME 91.1 FL (83-96); MEAN CORPUSCULAR HEMOGLOBIN 28.2 PG (28-34); MEAN PLATELET VOLUME 7.7 FL (6.5-11.5); RED BLOOD COUNT 4.91 X10e (3.90-5.60); RED CELL DISTRIBUTION WIDTH 15.7 % (11.0-15.5); WHITE BLOOD COUNT 13.2 X10e3 (4.0-10.5)
[2017-05-21 05:39] LABS: INR 2.1; PROTHROMBIN TIME (PATIENT) 22.7 SECONDS (10.0-11.7)
[2017-05-21 05:57] LABS: CALCIUM SERUM 8.9 mg/dL (8.4-10.2); CREATININE SERUM 0.8 mg/dL (0.6-1.4); GLOM FILT RATE Estimated 114.2 mL/min (>60); POTASSIUM 5.3 mmol/L (3.5-5.1)
[2017-05-22 06:13] LABS: HEMATOCRIT 45.9 % (38.0-50.0); HEMOGLOBIN 14.4 gm/dL (13.0-16.0); MEAN CELL VOLUME 90.9 FL (83-96); MEAN CORPUSCULAR HEMOGLOBIN 28.5 PG (28-34); MEAN CORPUSCULAR HGB CONC 31.4 g/dL (30-36); MEAN PLATELET VOLUME 7.6 FL (6.5-11.5); RED BLOOD COUNT 5.04 X10e (3.90-5.60); RED CELL DISTRIBUTION WIDTH 15.6 % (11.0-15.5); WHITE BLOOD COUNT 12.7 X10e3 (4.0-10.5)
[2017-05-22 06:52] LABS: BUN/CREATININE RATIO 27.5; CALCIUM SERUM 8.7 mg/dL (8.4-10.2); CREATININE SERUM 0.8 mg/dL (0.6-1.4); GLOM FILT RATE Estimated 114.2 mL/min (>60); POTASSIUM 4.5 mmol/L (3.5-5.1)
[2017-05-22] MEDS ORDERED: BREO ELLIPTA 21 EACH INH (11:28)
[2017-05-22] MEDS ORDERED: DALIRESP500 MCG PO (11:28)
[2017-05-22] MEDS ORDERED: PREDNISONE10 MG PO (11:29)
[2017-05-22] MEDS ORDERED: AZITHROMYCIN250 MG PO (11:29)
[2017-05-22] MEDS ORDERED: ACETAMINOPHEN PO (11:31)
[2017-05-22] MEDS ORDERED: ALBUTEROL MININEB NEB (14:34)
[2017-05-22] MEDS ORDERED: COMBIVENT U/D3 M2 INH (14:38)
== END 2017-05-22 15:48 | disposition home or self-care (01) | DRG 189 ==
LOC: CED 05:22 → CEDOF 08:00 → CED 08:23 → CEDOF 08:23 → C5C 11:04 → CEDOF 11:04 → C5C 05-22 15:48
PROVIDERS: Emergency Medicine; Family Medicine; Student in an Organized Health Care Education/Training Program
DX: J96.21 Acute and chronic respiratory failure with hypoxia (principal); E11.40 Type 2 diabetes mellitus with diabetic neuropathy, unspecified; J44.1 Chronic obstructive pulmonary disease with (acute) exacerbation; Z68.41 Body mass index [BMI] 40.0-44.9, adult; E66.01 Morbid (severe) obesity due to excess calories; E03.9 Hypothyroidism, unspecified; Z79.4 Long term (current) use of insulin; G47.33 Obstructive sleep apnea (adult) (pediatric); J98.4 Other disorders of lung; I48.0 Paroxysmal atrial fibrillation; Z79.01 Long term (current) use of anticoagulants; F17.210 Nicotine dependence, cigarettes, uncomplicated; E78.5 Hyperlipidemia, unspecified; Z79.82 Long term (current) use of aspirin
CPT/HCPCS: 36415; 71010; 71250; 80048; 80076; 82550; 82553; 82947; 83036; 83880; 84484; 85025; 85027; 85610; 85730; 87040; 87070; 87205; 93005; 94640; 94760; 96374; 96375; 99291; J0456; J0696; J1815; J2920; J2930

== ENCOUNTER 2017-06-13 15:45 | Emergency (ER) | payer OTHER ==
[~2017-06-13] VITALS: Ht 185.4 cm; Wt 142.4 kg
[~2017-06-13 15:45] MED LIST changes: +ACETAMINOPHEN PO; +ALBUTEROL MININEB NEB; +AZITHROMYCIN250 MG PO; +BASAGLAR K100 UNIT/1 SUBQ; +BREO ELLIPTA 11 EACH INH; +BREO ELLIPTA 21 EACH INH; +COMBIVENT U/D3 M2 INH; +DALIRESP500 MCG PO; +EQL HEADACHE R1 EACH PO; +GABAPENTIN600 MG PO; +LEVOTHYROXINE150 MCG PO; +METFORMIN HCL1000 M1 PO; +PREDNISONE10 MG PO; +WARFARIN SODIUM10 M1 PO
[2017-06-13 18:34] LABS: BASOPHIL# 0.1 X10e3 (0-0.3); BASOPHIL% 0.6 % (0-2.5); EOSINOPHIL# 0.3 X10e3 (0-0.7); EOSINOPHIL% 2.7 % (0.0-7.0); HEMATOCRIT 47.5 % (38.0-50.0); HEMOGLOBIN 15.5 gm/dL (13.0-16.0); LYMPHOCYTE# 1.1 X10e3 (1.0-3.5); LYMPHOCYTE% 11.3 % (17.0-45.0); MEAN CORPUSCULAR HGB CONC 32.6 g/dL (30-36); MEAN PLATELET VOLUME 7.3 FL (6.5-11.5); MONOCYTE# 0.6 X10e3 (0-1.0); MONOCYTE% 5.6 % (3.0-12.0); NEUTROPHIL# 7.8 X10e3 (1.5-7.1); NEUTROPHIL% 79.8 % (40-75); PLATELET COUNT 248 X10e3 (140-420); RED BLOOD COUNT 5.34 X10e (3.90-5.60); RED CELL DISTRIBUTION WIDTH 15.7 % (11.0-15.5); WHITE BLOOD COUNT 9.8 X10e3 (4.0-10.5)
[2017-06-13 18:35] LABS: DIFF IND NO
[2017-06-13 18:43] LABS: INR 1.9; PROTHROMBIN TIME (PATIENT) 20.5 SECONDS (10.0-11.7)
[2017-06-13 19:07] LABS: BILIRUBIN, DIRECT 0.1 mg/dL (0.0-0.2); BILIRUBIN,INDIRECT 0.3 mg/dL (0.0-0.9); BILIRUBIN,TOTAL 0.4 mg/dL (0.2-2.0); CALCIUM SERUM 8.9 mg/dL (8.4-10.2); GLOM FILT RATE Estimated 95.7 mL/min (>60); POTASSIUM 4.1 mmol/L (3.5-5.1); PROTEIN TOTAL SERUM 7.3 g/dL (6.0-8.3)
== END 2017-06-13 21:16 | disposition home or self-care (01) ==
LOC: CED 15:45
PROVIDERS: Student in an Organized Health Care Education/Training Program
DX: R60.0 Localized edema (principal); Z79.82 Long term (current) use of aspirin; Z79.899 Other long term (current) drug therapy
CPT/HCPCS: 36415; 80048; 80076; 85025; 85610; 86140; 96365; 99284

== ENCOUNTER → 2017-07-18 | Outpatient (CLI) | payer OTHER ==
--- NOTE | ~2017-07-18 | CT57 ---
[facility] A Service of [facility] RADIOLOGY TEXT RESULTS PATIENT: CHEYENNE VINSON [facility] 56 UNIT #: [id number] AGE: [address]: ABRAHAM HECK DO SEX: M ORDER DR: [id number] [facility] [address] [place], [place] [address] [id number] MR#: [id number] Acc #: [id number] NAME: CHEYENNE VINSON : 1960 SEX: M STUDY DATE/TIME: 07/19/2017 [facility] ROOM: STUDY DESCRIPTION: CT Chest Wo Cont Attending Physician: Abraham Heck M.D. Ordering Physician: Physician Non-Staff Primary Care Physician: Brennan Oliva Jr., A.P.R.N. MEDICAL IMAGING REPORT This report is preliminary unless electronic signature is present EXAM CT chest without contrast CLINICAL HISTORY COPD, shortness of air for 3 years. History of smoking. COMPARISON CT chest 05/20/2017 TECHNIQUE Helical noncontrasted images were obtained from the lung apices through the adrenal glands. Sagittal and coronal reconstructions were performed. Total exam DLP 8 9 mGy-cm. This CT exam was performed with one or more of the following radiation dose reduction techniques: automatic exposure control, adjustment of mA and/or kV according to patient size, and iterative reconstruction. FINDINGS Images through the thoracic inlet are negative. Noncontrasted images through the chest demonstrates stable benign calcified right paratracheal, precarinal lymph nodes. There are small AP window, prevascular and hilar nodes felt stable. Assessment is limited by the lack of intravenous contrast. Cardiac chambers and pericardium are normal. The esophagus is normal. The lungs demonstrate extensive emphysematous change bilaterally most severe at the lateral right upper lobe compared to left upper lobe. There is no definite acute pulmonary density. There is linear scarring in the lingula and right middle lobe. There is persistent right lower lobe posteromedial density measuring 6.7 cm x 2.3 cm previously 6.5cm x 2.2 cm [facility] A Service of [facility] RADIOLOGY TEXT RESULTS PATIENT: CHEYENNE VINSON [facility] : 56 UNIT #: [id number] AGE: [address]: ABRAHAM HECK DO SEX: M ORDER DR: likely an area of rounded atelectasis. Similar rounded atelectasis is favored at the lateral left lung base, also stable. There is no pleural fluid. Limited views through the upper abdomen suggest sludge in the gallbladder or perhaps small stones. There is no gallbladder wall thickening or bile duct dilatation. There is a stable right adrenal lesion measuring 2.7 cm and between 6 and 13 Hounsfield units, likely a benign adenoma. IMPRESSION 1. Stable chest CT with emphysematous changes and areas of fibrotic scarring. Ovoid density at the posteromedial right lung base is relatively stable as is density at the lateral left lung base. The morphology favors the presence of rounded atelectasis rather than tumor or mass. 2. No pathologic adenopathy is seen. 3. Stable right adrenal nodule measuring 2.7 cm and between 6 and 13 Hounsfield units, likely an adenoma. Continued CT followup in 6 months is recommended. Dictated by... Kelly Delcid M.D. THIS IS AN ELECTRONICALLY VERIFIED REPORT Kelly Delcid M.D. at 07/20/2017 9:25 AM Arina TD: 07/19/2017 23:32 JOB #: [id number] MEDICAL IMAGING REPORT Page 1 of 1 COPY
== END | disposition home or self-care (01) ==
LOC: CCAT 14:35
DX: R91.8 Other nonspecific abnormal finding of lung field (principal); E27.8 Other specified disorders of adrenal gland; J98.4 Other disorders of lung
CPT/HCPCS: 71250